=== PATIENT | female | born 1955 | race Caucasian/White ===

== ENCOUNTER 2016-07-08 13:51 | Emergency (ER) | payer MEDICARE, MEDICAID ==
[~2016-07-08] VITALS: Ht 157.5 cm; Wt 40.9 kg
[~2016-07-08 13:51] MED LIST: ABILIFY2 MG PO; ABILIFY5 MG PO; ANTIVERT 25MG25 MG PO; ARICEPT 5MG PO; ASPIRIN 81M81 MG/TA2 PO; ATARAX 25MG25 MG/TAB PO; ATARAX50 MG PO; ATIVAN 0.50.5 MG/TAB PO; AVELOX 400MG T400 MG PO; B-1100 MG PO; BONINE25 MG PO; BROVANA15 MCG/2 M IH; BROVANA15 MCG/2 M INH; CHANTIX 1MG1 MG PO; CHANTIX START M1 TAB PO; CHLORASEPTIC 1180 M3 TP; CLARITIN 1010 MG/TAB PO; CLEOCIN HCL300 MG PO; DESYREL 100MG100 MG PO; DESYREL 50MG50 MG PO; DIFLUCAN 100MG100 MG PO; DOXYCYCLINE 10100 MG PO; FERRO-TIME325 MG; FERROUS SULFATE65 MG PO; FERROUSAL325 MG PO; FLEXERIL 1010 MG/TAB PO; FLONASE NASAL S16 GM; FOLIC ACID 11 MG/TA1 PO; INCIVEK375 MG PO; IPRATROPIUM BROM3 M1 IH; LEVAQUIN 5500 MG/TA1 PO; LEVAQUIN 750MG750 M1 PO; LIPITOR20 MG PO; LORTAB 5/500 501 TAB PO; MEDROL 4MG DOSPA4 MG PO; MULTIVITAMIN SEN; NAPROSYN500 MG PO; NASONEX SPRAY17 GM NS; NEXIUM 40MG40 MG PO; NICODERM C21 MG/PATC TOP; PEGASYS180 MCG/0. SQ; PERFOROMIS20 MCG/2 M IH; PLAVIX 75MG TAB75 MG PO; PREDNISONE10 MG; PREDNISONE10 MG PO; PREDNISONE20 MG PO; PRIL40 PO; PRILOTC PO; PRISTIQ 50 MG T50 MG PO; PROTONIX 40MG T40 MG PO; PULMICORT R1 MG/2 ML IH; PULMICORT0.5 MG/2 M IH; PULMO-AIDE COMP1 DEV; QVAR0.04 MG/AC IH; REBETOL200 MG PO; REMERON 15M15 MG/TA1; REMERON30 MG PO; RIBAVIRIN200 M1 PO; RT ADVAIR 528 DISKUS IH; RT SPIRIVA18 MCG IH; THERAGRAN1 TA1 PO; TOPAMAX 25MG25 M1 PO; UNABLE; VESICARE 5MG5 MG PO; VESICARE10 MG PO; VITAMIN D 1001000 IU PO; VITAMIN D31000 IU PO; XANAX 0.5MG0.5 MG; XANAX 0.5MG0.5 MG PO; ZITHROMAX 250M250 MG PO; ZITHROMAX Z PA250 MG PO; ZOFRAN 4MG T4 MG/TAB PO; ZYRTEC10MGSGL
[2016-07-08 13:54] VITALS: TEMP 98.7
[2016-07-08 15:11] LABS: BASO % 0.4 % (0.0-2.0); EOS # 0.1 (0.0-0.7); EOS % 0.6 % (0-4.0); GRAN # 7.7 (1.4-6.5); GRAN % 76.2 % (42.2-75.2); HEMATOCRIT 40.7 % (37.0-47.0); HEMOGLOBIN 13.7 g/dl (12.5-16.0); LYMPH # 1.4 (1.2-3.4); LYMPH % 14.1 % (20.0-51.0); MEAN CELL VOLUME 95 fl (80.0-100.0); MEAN CORPUSCULAR HEMOGLOBIN 32 pg (27.0-31.0); MEAN CORPUSCULAR HGB CONC 34 g/dl (33.0-37.0); MEAN PLATELET VOLUME 10.6 fl (7.4-10.4); MONO # 0.8 (0.1-0.6); MONO % 8.2 % (1.7-9.3); PLATELET COUNT 142 K/mm3 (130-400); REDCELL DISTRIBUTION WIDTH-CV 13.7 % (11.5-14.5)
[2016-07-08 15:20] LABS: ADJUSTED CALCIUM 9.8 mg/dL (8.4-10.2); ALANINE AMINOTRANSFERASE 28 U/L (9-52); ALBUMIN 3.8 gm/dL (3.5-5.0); ALKALINE PHOSPHATASE 156 U/L (50-136); ANION GAP 9 mmol/L (7-16); BILIRUBIN,TOTAL 0.7 mg/dL (0.0-1.0); BLOOD UREA NITROGEN 13 mg/dL (7-17); CALCIUM 9.6 mg/dL (8.4-10.2); CARBON DIOXIDE 26 mmol/L (22-30); CHLORIDE 104 mmol/L (98-107); GLUCOSE 109 mg/dL (74-106); LIPASE 65 U/L (23-300); POTASSIUM 4.2 mmol/L (3.4-5.0); SODIUM 139 mmol/L (137-145); TOTAL PROTEIN 6.8 gm/dL (6.4-8.2)
[2016-07-08 15:31] LABS: B-TYPE NATRIURETIC PEPTIDE 90 pg/mL (0-125)
[2016-07-08 15:35] LABS: TROPONIN-I < 0.012 ng/mL (0.000-0.034)
[2016-07-08] MEDS ORDERED: CARAFATE 1GM1 G PO (16:11)
[2016-07-08] MEDS ORDERED: PREDNISONE20 MG PO (16:11)
[2016-07-08 16:33] VITALS: BP 129/81; PULSE 102
[2016-12-06] MEDS ORDERED: PROTONIX 40MG T40 MG PO (03:36)
[2016-12-28] MEDS ORDERED: ATARAX 25MG25 MG/TAB PO (12:06)
[2016-12-28] MEDS ORDERED: ALDACTONE 25MG25 M1 PO (12:06)
[2016-12-28] MEDS ORDERED: LASIX 20MG TABL20 MG PO (12:07)
[2016-12-28] MEDS ORDERED: COLACE 100100 MG/CAP PO (12:08)
[2016-12-28] MEDS ORDERED: K-DUR20 MEQ PO (12:08)
[2016-12-28] MEDS ORDERED: [UNRECOGNIZED DRUG - OTHER] PO (12:27)
== END 2016-07-08 16:33 | disposition home or self-care (01) ==
LOC: COL.ER 13:51
PROVIDERS: Emergency Medicine
DX: J44.9 Chronic obstructive pulmonary disease, unspecified (principal); F17.210 Nicotine dependence, cigarettes, uncomplicated; K21.9 Gastro-esophageal reflux disease without esophagitis
CPT/HCPCS: J2405; J2930; J7030

== ENCOUNTER 2016-07-28 11:53 | Inpatient (IN) | payer MEDICARE, MEDICAID ==
[~2016-07-28] VITALS: Ht 157.5 cm; Wt 40.0 kg
[~2016-07-28 11:53] MED LIST changes: +CARAFATE 1GM1 G PO
[2016-07-28 13:03] VITALS: BP 107/61; PULSE 75; TEMP 98
[2016-07-28 15:16] LABS: ADD PATHOLOGY DIFF REVIEW NO
[2016-07-28 15:21] LABS: ALLEN TEST YES; ALLENS TEST RESULT PASS; ARTERIAL BLD GAS O2 SATURATION 96.8 % (92-100); ARTERIAL BLD GAS TCO2 CT 29.3; ARTERIAL BLOOD GAS BASE EXCESS 3.8 (-2-2); ARTERIAL BLOOD GAS HCO3 28.1 meq/L (22-26); ARTERIAL BLOOD GAS PHT 7.45 C (7.35-7.45); ARTERIAL BLOOD GAS PO2 94.8 mmHg (80-100); ARTERIAL BLOOD GAS PO2T 94.8 (80-100); ARTERIAL BLOOD GAS pH 7.45 (7.35-7.45); ATS? YES; OXYHEMOGLOBIN 94.9 %
[2016-07-28 15:29] LABS: ADJUSTED CALCIUM 9.6 mg/dL (8.4-10.2); ALBUMIN 3.3 gm/dL (3.5-5.0); BILIRUBIN,TOTAL 0.8 mg/dL (0.0-1.0); CREATININE, serum 0.6 mg/dL (0.52-1.25); MAGNESIUM 2.2 mg/dL (1.6-2.3); PHOSPHOROUS 3.7 mg/dL (2.5-4.5); POTASSIUM 4.2 mmol/L (3.4-5.0); TOTAL PROTEIN 5.9 gm/dL (6.4-8.2)
[2016-07-28 15:36] VITALS: BP 101/53; PULSE 94; TEMP 98.6
[2016-07-28 15:36] LABS: HEMATOCRIT 37.7 % (37.0-47.0); HEMOGLOBIN 12.6 g/dl (12.5-16.0); MEAN CELL VOLUME 95 fl (80.0-100.0); MEAN CORPUSCULAR HEMOGLOBIN 32 pg (27.0-31.0); MEAN CORPUSCULAR HGB CONC 33 g/dl (33.0-37.0); MEAN PLATELET VOLUME 10.7 fl (7.4-10.4); PLATELET COUNT 113 K/mm3 (130-400); RED BLOOD COUNT 3.99 M/mm3 (4.10-5.30); REDCELL DISTRIBUTION WIDTH-CV 14.7 % (11.5-14.5)
[2016-07-28] MEDS ORDERED: RT SPIRIVA18 MCG IH (15:51)
[2016-07-28] MEDS ORDERED: ZOFRAN 4MG T4 MG/TAB PO (15:53)
[2016-07-28] MEDS ORDERED: LIPITOR20 MG PO (15:54)
[2016-07-28] MEDS ORDERED: ADVIL200 MG PO (15:57)
[2016-07-28 15:58] LABS: NEUTROPHILS 94 % (42.0-75.2); TOTAL CELLS COUNTED 100
[2016-07-28] MEDS ORDERED: VESICARE10 MG PO (15:58)
[2016-07-28 15:59] LABS: ANISOCYTOSIS 2+; HYPOCHROMIA 2+; MICROCYTOSIS 2+
[2016-07-28] MEDS ORDERED: PROTONIX 40MG T40 MG PO (15:59)
[2016-07-28] MEDS ORDERED: REMERON30 MG PO (16:00)
[2016-07-28] MEDS ORDERED: PREDNISONE10 MG PO (16:04)
[2016-07-28 20:07] VITALS: BP 107/67; PULSE 80; TEMP 97.9
[2016-07-28 22:54] VITALS: BP 110/50; PULSE 88; TEMP 98.2
[2016-07-29] VITALS (13 sets, daily range): BP systolic 91–131; BP diastolic 51–85; PULSE 66–97; TEMP 97.6–98.2
[2016-07-29 09:34] LABS: HEMOGLOBIN 12.2 g/dl (12.5-16.0); MEAN CELL VOLUME 93 fl (80.0-100.0); MEAN CORPUSCULAR HEMOGLOBIN 32 pg (27.0-31.0); MEAN CORPUSCULAR HGB CONC 35 g/dl (33.0-37.0); MEAN PLATELET VOLUME 10.2 fl (7.4-10.4); PLATELET COUNT 106 K/mm3 (130-400); RED BLOOD COUNT 3.79 M/mm3 (4.10-5.30); REDCELL DISTRIBUTION WIDTH-CV 14.6 % (11.5-14.5)
[2016-07-29 09:37] LABS: ADD PATHOLOGY DIFF REVIEW NO; HEMATOCRIT 35.3 % (37.0-47.0)
[2016-07-29 15:09] LABS: BAND 5 % (0-10); BASOPHIL 1 % (0-2); NEUTROPHILS 89 % (42.0-75.2); PLATELET ESTIMATE DECREASED (NORMAL); TOTAL CELLS COUNTED 100
[2016-07-30 03:24] VITALS: BP 95/60; PULSE 72; TEMP 98.3
[2016-07-30 08:16] VITALS: BP 109/57; PULSE 85; TEMP 97.4
[2016-07-30] MEDS ORDERED: LEVAQUIN 750MG750 M1 PO (12:41)
[2016-07-30] MEDS ORDERED: CEFTIN500 MG PO (12:42)
[2016-07-30] MEDS ORDERED: VENTOLIN0.09 MG IH (12:44)
[2016-07-30] MEDS ORDERED: PREDNISONE20 MG PO (12:45)
[2016-07-30 13:14] LABS: HEMATOCRIT 39.3 % (37.0-47.0); HEMOGLOBIN 13.3 g/dl (12.5-16.0); MEAN CELL VOLUME 94 fl (80.0-100.0); MEAN CORPUSCULAR HEMOGLOBIN 32 pg (27.0-31.0); MEAN CORPUSCULAR HGB CONC 34 g/dl (33.0-37.0); MEAN PLATELET VOLUME 10.5 fl (7.4-10.4); PLATELET COUNT 182 K/mm3 (130-400); RED BLOOD COUNT 4.17 M/mm3 (4.10-5.30)
[2016-07-30 13:17] LABS: ADD PATHOLOGY DIFF REVIEW NO
[2016-07-30 13:54] LABS: CALCIUM 9.4 mg/dL (8.4-10.2); CREATININE, serum 0.67 mg/dL (0.52-1.25); POTASSIUM 4.1 mmol/L (3.4-5.0)
[2016-07-30 14:52] LABS: BAND 1 % (0-10); EOSINOPHIL 1 % (0-4); NEUTROPHILS 94 % (42.0-75.2); TOTAL CELLS COUNTED 100
[2016-12-06] MEDS ORDERED: PROTONIX 40MG T40 MG PO (03:36)
[2016-12-28] MEDS ORDERED: ALDACTONE 25MG25 M1 PO (12:06)
[2016-12-28] MEDS ORDERED: ATARAX 25MG25 MG/TAB PO (12:06)
[2016-12-28] MEDS ORDERED: LASIX 20MG TABL20 MG PO (12:07)
[2016-12-28] MEDS ORDERED: COLACE 100100 MG/CAP PO (12:08)
[2016-12-28] MEDS ORDERED: K-DUR20 MEQ PO (12:08)
[2016-12-28] MEDS ORDERED: [UNRECOGNIZED DRUG - OTHER] PO (12:27)
== END 2016-07-30 13:52 | disposition home or self-care (01) | DRG 168 ==
LOC: MEDICAL 11:53
PROVIDERS: Internal Medicine Pulmonary Disease; Nurse Practitioner Family
PROC: 0B9H8ZZ Drainage of Lung Lingula, Via Natural or Artificial Opening Endoscopic (ICD-10-PCS; 2016-07-29)
PROC: 0BB88ZX Excision of Left Upper Lobe Bronchus, Via Natural or Artificial Opening Endoscopic, Diagnostic (ICD-10-PCS; 2016-07-29)
PROC: 0BB68ZX Excision of Right Lower Lobe Bronchus, Via Natural or Artificial Opening Endoscopic, Diagnostic (ICD-10-PCS; 2016-07-29)
PROC: 0BB58ZX Excision of Right Middle Lobe Bronchus, Via Natural or Artificial Opening Endoscopic, Diagnostic (ICD-10-PCS; principal; 2016-07-29 12:45)
DX: J44.1 Chronic obstructive pulmonary disease with (acute) exacerbation (principal); F17.210 Nicotine dependence, cigarettes, uncomplicated; Z86.73 Personal history of transient ischemic attack (TIA), and cerebral infarction without residual deficits
CPT/HCPCS: 99222-AI; 99232-AI; 99239; J0692; J1650; J2704; J2920

== ENCOUNTER 2016-08-17 16:24 | Emergency (ER) | payer MEDICARE, MEDICAID ==
[~2016-08-17] VITALS: Ht 157.5 cm; Wt 45.5 kg
[~2016-08-17 16:24] MED LIST changes: +ADVIL200 MG PO; +CEFTIN500 MG PO; +VENTOLIN0.09 MG IH
[2016-08-17 16:26] VITALS: TEMP 98
[2016-08-17 17:20] LABS: BASO % 0.1 % (0.0-2.0); EOS % 0.4 % (0-4.0); GRAN # 5.9 (1.4-6.5); GRAN % 84.9 % (42.2-75.2); HEMATOCRIT 42.6 % (37.0-47.0); HEMOGLOBIN 14.2 g/dl (12.5-16.0); LYMPH # 0.7 (1.2-3.4); LYMPH % 9.7 % (20.0-51.0); MEAN CELL VOLUME 94 fl (80.0-100.0); MEAN CORPUSCULAR HEMOGLOBIN 31 pg (27.0-31.0); MEAN CORPUSCULAR HGB CONC 33 g/dl (33.0-37.0); MONO # 0.3 (0.1-0.6); MONO % 3.9 % (1.7-9.3); PLATELET COUNT 120 K/mm3 (130-400); RED BLOOD COUNT 4.52 M/mm3 (4.10-5.30); REDCELL DISTRIBUTION WIDTH-CV 14.8 % (11.5-14.5)
[2016-08-17 17:49] LABS: B-TYPE NATRIURETIC PEPTIDE 50 pg/mL (0-125); C-REACTIVE PROTEIN < 0.5 mg/dL (0.0-0.9)
[2016-08-17 17:58] LABS: ADJUSTED CALCIUM 9.8 mg/dL (8.4-10.2); ALANINE AMINOTRANSFERASE 36 U/L (9-52); ALBUMIN 3.8 gm/dL (3.5-5.0); ALKALINE PHOSPHATASE 133 U/L (50-136); ANION GAP 10 mmol/L (7-16); BILIRUBIN,TOTAL 0.6 mg/dL (0.0-1.0); BLOOD UREA NITROGEN 19 mg/dL (7-17); CALCIUM 9.6 mg/dL (8.4-10.2); CARBON DIOXIDE 26 mmol/L (22-30); CHLORIDE 105 mmol/L (98-107); CREATININE, serum 0.64 mg/dL (0.52-1.25); GLUCOSE 129 mg/dL (74-106); LIPASE 72 U/L (23-300); POTASSIUM 4.3 mmol/L (3.4-5.0); SODIUM 142 mmol/L (137-145); TOTAL PROTEIN 6.9 gm/dL (6.4-8.2)
[2016-08-17 18:12] LABS: PH 7 (5-8); SQUAMOUS EPITHELIAL 0-2 /hpf; URINE APPEARANCE Cloudy; URINE BACTERIA None Seen /hpf; URINE BILIRUBIN Negative (NEGATIVE); URINE BLOOD Negative (NEGATIVE); URINE COLOR Yellow; URINE GLUCOSE Negative (NEGATIVE); URINE KETONE Negative (NEGATIVE); URINE RBC 0-2 /hpf; URINE WBC 0-2 /hpf
[2016-08-17] MEDS ORDERED: MEDROL 4MG DOSPA4 MG PO (18:50)
[2016-08-17 19:01] VITALS: BP 120/82; PULSE 88
[2016-12-06] MEDS ORDERED: PROTONIX 40MG T40 MG PO (03:36)
[2016-12-28] MEDS ORDERED: ALDACTONE 25MG25 M1 PO (12:06)
[2016-12-28] MEDS ORDERED: ATARAX 25MG25 MG/TAB PO (12:06)
[2016-12-28] MEDS ORDERED: LASIX 20MG TABL20 MG PO (12:07)
[2016-12-28] MEDS ORDERED: K-DUR20 MEQ PO (12:08)
[2016-12-28] MEDS ORDERED: COLACE 100100 MG/CAP PO (12:08)
[2016-12-28] MEDS ORDERED: [UNRECOGNIZED DRUG - OTHER] PO (12:27)
== END 2016-08-17 19:11 | disposition home or self-care (01) ==
LOC: COL.ER 16:24
PROVIDERS: Emergency Medicine
DX: J44.1 Chronic obstructive pulmonary disease with (acute) exacerbation (principal); J45.909 Unspecified asthma, uncomplicated; F17.210 Nicotine dependence, cigarettes, uncomplicated; Z99.81 Dependence on supplemental oxygen; R10.84 Generalized abdominal pain
CPT/HCPCS: J7040; J7512

== ENCOUNTER 2016-08-30 14:58 | Inpatient (IN) | payer MEDICARE, MEDICAID ==
[~2016-08-30] VITALS: Ht 157.5 cm; Wt 46.9 kg
[2016-08-30 15:52] LABS: HEMATOCRIT 41.2 % (37.0-47.0); HEMOGLOBIN 13.9 g/dl (12.5-16.0); MEAN CELL VOLUME 94 fl (80.0-100.0); MEAN CORPUSCULAR HEMOGLOBIN 32 pg (27.0-31.0); MEAN CORPUSCULAR HGB CONC 34 g/dl (33.0-37.0); MEAN PLATELET VOLUME 9.8 fl (7.4-10.4); PLATELET COUNT 95 K/mm3 (130-400); REDCELL DISTRIBUTION WIDTH-CV 13.9 % (11.5-14.5); WHITE BLOOD COUNT 10.8 K/mm3 (4.8-10.8)
[2016-08-30 15:59] LABS: ADD PATHOLOGY DIFF REVIEW NO
[2016-08-30 16:02] LABS: INR 1.1 (0.8-3.0); PROTHROMBIN TIME 11.7 SECONDS (9.7-12.8)
[2016-08-30 16:04] LABS: PARTIAL THROMBOPLASTIN TIME 30.2 SECONDS (26.0-37.0)
[2016-08-30 16:05] LABS: BAND 18 % (0-10); METAMYELOCYTE 1 % (0-0); NEUTROPHILS 76 % (42.0-75.2); PLATELET ESTIMATE NORMAL (NORMAL); TOTAL CELLS COUNTED 100
[2016-08-30 16:12] LABS: ADJUSTED CALCIUM 9.6 mg/dL (8.4-10.2); ALANINE AMINOTRANSFERASE 29 U/L (9-52); ALBUMIN 3.7 gm/dL (3.5-5.0); ALKALINE PHOSPHATASE 114 U/L (50-136); ANION GAP 8 mmol/L (7-16); BILIRUBIN,TOTAL 1.1 mg/dL (0.0-1.0); BLOOD UREA NITROGEN 9 mg/dL (7-17); CALCIUM 9.4 mg/dL (8.4-10.2); CARBON DIOXIDE 31 mmol/L (22-30); CHLORIDE 100 mmol/L (98-107); CREATININE, serum 0.57 mg/dL (0.52-1.25); GLUCOSE 114 mg/dL (74-106); LIPASE 41 U/L (23-300); POTASSIUM 4.1 mmol/L (3.4-5.0); SODIUM 138 mmol/L (137-145)
[2016-08-30 16:15] LABS: C-REACTIVE PROTEIN < 0.5 mg/dL (0.0-0.9)
[2016-08-30 16:20] LABS: B-TYPE NATRIURETIC PEPTIDE 105 pg/mL (0-125)
[2016-08-30 16:21] LABS: TROPONIN-I < 0.012 ng/mL (0.000-0.034)
[2016-08-30 18:27] LABS: PH 7 (5-8); URINE APPEARANCE Hazy; URINE BACTERIA None Seen /hpf; URINE BILIRUBIN Negative (NEGATIVE); URINE BLOOD Negative (NEGATIVE); URINE COLOR Yellow; URINE GLUCOSE Negative (NEGATIVE); URINE KETONE Negative (NEGATIVE); URINE RBC 0-2 /hpf; URINE UROBILINOGEN Negative (NEGATIVE)
[2016-08-30] MEDS ORDERED: PREDNISONE10 MG PO (18:32)
[2016-08-30] MEDS ORDERED: PRISTIQ 50 MG T50 MG PO (18:37)
[2016-08-30] MEDS ORDERED: ATARAX50 MG PO (18:38)
[2016-08-30 19:07] LABS: ARTERIAL BLD GAS O2 SATURATION 96.2 % (92-100); ARTERIAL BLD GAS TCO2 CT 27.5; ARTERIAL BLOOD GAS HCO3 26.2 meq/L (22-26); ARTERIAL BLOOD GAS PO2 89.8 mmHg (80-100); ARTERIAL BLOOD GAS PO2T 89.8 (80-100)
[2016-08-30 19:09] LABS: ALLEN TEST NO; ATS? YES
[2016-08-30 21:05] VITALS: BP 100/62; PULSE 88; TEMP 98.5
[2016-08-31] VITALS (8 sets, daily range): BP systolic 100–134; BP diastolic 50–69; PULSE 64–118; TEMP 97.7–98.7
[2016-08-31 12:56] LABS: HEMATOCRIT 38.6 % (37.0-47.0); MEAN CELL VOLUME 94 fl (80.0-100.0); MEAN CORPUSCULAR HEMOGLOBIN 32 pg (27.0-31.0); MEAN CORPUSCULAR HGB CONC 34 g/dl (33.0-37.0); MEAN PLATELET VOLUME 10.9 fl (7.4-10.4); PLATELET COUNT 81 K/mm3 (130-400); RED BLOOD COUNT 4.09 M/mm3 (4.10-5.30); REDCELL DISTRIBUTION WIDTH-CV 13.8 % (11.5-14.5); WHITE BLOOD COUNT 15.7 K/mm3 (4.8-10.8)
[2016-08-31 12:57] LABS: ADD PATHOLOGY DIFF REVIEW NO
[2016-08-31 13:26] LABS: BAND 19 % (0-10); NEUTROPHILS 76 % (42.0-75.2); PLATELET ESTIMATE NORMAL (NORMAL); TOTAL CELLS COUNTED 100
[2016-08-31 16:07] LABS: INFLUENZA B NEGATIVE
[2016-09-01] VITALS (7 sets, daily range): BP systolic 116–136; BP diastolic 58–96; PULSE 84–112; TEMP 97.5–98.6
[2016-09-01 09:01] LABS: MEAN CELL VOLUME 95 fl (80.0-100.0); MEAN CORPUSCULAR HGB CONC 34 g/dl (33.0-37.0); PLATELET COUNT 92 K/mm3 (130-400); RED BLOOD COUNT 3.64 M/mm3 (4.10-5.30); REDCELL DISTRIBUTION WIDTH-CV 14.5 % (11.5-14.5)
[2016-09-01 09:23] LABS: ADD PATHOLOGY DIFF REVIEW NO; HEMATOCRIT 34.4 % (37.0-47.0); HEMOGLOBIN 11.6 g/dl (12.5-16.0); MEAN CORPUSCULAR HEMOGLOBIN 32 pg (27.0-31.0); WHITE BLOOD COUNT 21.2 K/mm3 (4.8-10.8)
[2016-09-01 10:24] LABS: BAND 12 % (0-10); NEUTROPHILS 85 % (42.0-75.2); PLATELET ESTIMATE DECREASED (NORMAL); TOTAL CELLS COUNTED 100
[2016-09-01] MEDS ORDERED: LEVAQUIN 5500 MG/TA1 PO (14:29)
[2016-09-01] MEDS ORDERED: MUCINEX1200 MG PO (14:30)
[2016-09-01] MEDS ORDERED: FLONASEALLERGY NS (14:31)
[2016-09-01] MEDS ORDERED: PREDNISONE20 MG PO (14:33)
[2016-12-06] MEDS ORDERED: PROTONIX 40MG T40 MG PO (03:36)
[2016-12-28] MEDS ORDERED: ATARAX 25MG25 MG/TAB PO (12:06)
[2016-12-28] MEDS ORDERED: ALDACTONE 25MG25 M1 PO (12:06)
[2016-12-28] MEDS ORDERED: LASIX 20MG TABL20 MG PO (12:07)
[2016-12-28] MEDS ORDERED: COLACE 100100 MG/CAP PO (12:08)
[2016-12-28] MEDS ORDERED: K-DUR20 MEQ PO (12:08)
[2016-12-28] MEDS ORDERED: [UNRECOGNIZED DRUG - OTHER] PO (12:27)
== END 2016-09-01 18:00 | disposition home or self-care (01) | DRG 191 ==
LOC: COL.ER 14:58 → MEDICAL 19:06
PROVIDERS: Emergency Medicine; Internal Medicine Gastroenterology; Physician Assistant
PROC: 0DJ08ZZ Inspection of Upper Intestinal Tract, Via Natural or Artificial Opening Endoscopic (ICD-10-PCS; principal; 2016-09-01 14:15)
PROC: 0DJD8ZZ Inspection of Lower Intestinal Tract, Via Natural or Artificial Opening Endoscopic (ICD-10-PCS; 2016-09-01 14:15)
DX: J44.1 Chronic obstructive pulmonary disease with (acute) exacerbation (principal); K76.6 Portal hypertension; I10 Essential (primary) hypertension; B19.20 Unspecified viral hepatitis C without hepatic coma; D69.6 Thrombocytopenia, unspecified; K57.30 Diverticulosis of large intestine without perforation or abscess without bleeding; F03.90 Unspecified dementia, unspecified severity, without behavioral disturbance, psychotic disturbance, mood disturbance, and anxiety; E78.5 Hyperlipidemia, unspecified; R11.2 Nausea with vomiting, unspecified; R55 Syncope and collapse; F41.9 Anxiety disorder, unspecified; R10.13 Epigastric pain; F17.210 Nicotine dependence, cigarettes, uncomplicated; Z99.81 Dependence on supplemental oxygen; Z86.73 Personal history of transient ischemic attack (TIA), and cerebral infarction without residual deficits
CPT/HCPCS: 99223-AI; 99233-AI; 99239; C9113; J0696; J1170; J1650; J1956; J2405; J2704; J2930; J7030; Q9967

== ENCOUNTER 2016-09-29 12:52 | Emergency (ER) | payer MEDICARE, MEDICAID ==
[~2016-09-29] VITALS: Ht 157.5 cm; Wt 45.5 kg
[~2016-09-29 12:52] MED LIST changes: +FLONASEALLERGY NS; +MUCINEX1200 MG PO
[2016-09-29 12:56] VITALS: TEMP 98.5
[2016-09-29 13:51] LABS: ADJUSTED CALCIUM 9.8 mg/dL (8.4-10.2); ALBUMIN 3.2 gm/dL (3.5-5.0); BILIRUBIN,TOTAL 0.8 mg/dL (0.0-1.0); CALCIUM 9.2 mg/dL (8.4-10.2); CREATININE, serum 0.6 mg/dL (0.52-1.25); POTASSIUM 3.5 mmol/L (3.4-5.0); TOTAL PROTEIN 5.4 gm/dL (6.4-8.2)
[2016-09-29 13:59] LABS: BASO % 0.2 % (0.0-2.0); EOS % 0.1 % (0-4.0); GRAN # 13.5 (1.4-6.5); GRAN % 81.4 % (42.2-75.2); HEMOGLOBIN 12.7 g/dl (12.5-16.0); LYMPH # 1.5 (1.2-3.4); LYMPH % 8.9 % (20.0-51.0); MEAN CELL VOLUME 91 fl (80.0-100.0); MEAN CORPUSCULAR HEMOGLOBIN 31 pg (27.0-31.0); MEAN CORPUSCULAR HGB CONC 33 g/dl (33.0-37.0); MEAN PLATELET VOLUME 10.1 fl (7.4-10.4); MONO # 1.4 (0.1-0.6); MONO % 8.2 % (1.7-9.3); PLATELET COUNT 110 K/mm3 (130-400); RED BLOOD COUNT 4.16 M/mm3 (4.10-5.30); REDCELL DISTRIBUTION WIDTH-CV 14.1 % (11.5-14.5); WHITE BLOOD COUNT 16.6 K/mm3 (4.8-10.8)
[2016-09-29 15:15] VITALS: BP 119/75; PULSE 113
[2016-12-06] MEDS ORDERED: PROTONIX 40MG T40 MG PO (03:36)
[2016-12-28] MEDS ORDERED: ALDACTONE 25MG25 M1 PO (12:06)
[2016-12-28] MEDS ORDERED: ATARAX 25MG25 MG/TAB PO (12:06)
[2016-12-28] MEDS ORDERED: LASIX 20MG TABL20 MG PO (12:07)
[2016-12-28] MEDS ORDERED: K-DUR20 MEQ PO (12:08)
[2016-12-28] MEDS ORDERED: COLACE 100100 MG/CAP PO (12:08)
[2016-12-28] MEDS ORDERED: [UNRECOGNIZED DRUG - OTHER] PO (12:27)
== END 2016-09-29 15:16 | disposition home or self-care (01) ==
LOC: COL.ER 12:52
PROVIDERS: Emergency Medicine
DX: J44.1 Chronic obstructive pulmonary disease with (acute) exacerbation (principal); F17.210 Nicotine dependence, cigarettes, uncomplicated; R00.0 Tachycardia, unspecified; B19.20 Unspecified viral hepatitis C without hepatic coma; Z99.81 Dependence on supplemental oxygen
CPT/HCPCS: J2930; J7030

== ENCOUNTER 2016-10-12 15:18 | Inpatient (IN) | payer MEDICARE, MEDICAID ==
[~2016-10-12] VITALS: Ht 157.5 cm; Wt 47.5 kg
[2016-10-12 15:37] VITALS: BP 146/88; PULSE 89; TEMP 98.3
[2016-10-12] MEDS ORDERED: INCRUSE EL62.5 MCG/A IH (15:38)
[2016-10-12 16:17] LABS: ARTERIAL BLD GAS O2 SATURATION 97.1 % (92-100); ARTERIAL BLD GAS TCO2 CT 32.4; ARTERIAL BLOOD GAS PO2 100.3 mmHg (80-100); ARTERIAL BLOOD GAS pH 7.45 (7.35-7.45)
[2016-10-12 16:18] LABS: ALLEN TEST YES; ALLENS TEST RESULT PASS; ATS? YES
[2016-10-12 18:38] LABS: BASO % 0.1 % (0.0-2.0); EOS % 0.3 % (0-4.0); GRAN # 11.2 (1.4-6.5); GRAN % 82.1 % (42.2-75.2); HEMATOCRIT 41.2 % (37.0-47.0); HEMOGLOBIN 13.7 g/dl (12.5-16.0); LYMPH # 1.3 (1.2-3.4); LYMPH % 9.7 % (20.0-51.0); MEAN CELL VOLUME 93 fl (80.0-100.0); MEAN CORPUSCULAR HEMOGLOBIN 31 pg (27.0-31.0); MEAN CORPUSCULAR HGB CONC 33 g/dl (33.0-37.0); MEAN PLATELET VOLUME 9.6 fl (7.4-10.4); MONO # 0.9 (0.1-0.6); MONO % 6.7 % (1.7-9.3); PLATELET COUNT 107 K/mm3 (130-400); RED BLOOD COUNT 4.45 M/mm3 (4.10-5.30); REDCELL DISTRIBUTION WIDTH-CV 14.7 % (11.5-14.5); WHITE BLOOD COUNT 13.7 K/mm3 (4.8-10.8)
[2016-10-12 18:49] LABS: ADJUSTED CALCIUM 9.8 mg/dL (8.4-10.2); ALBUMIN 3.5 gm/dL (3.5-5.0); BILIRUBIN,TOTAL 1.1 mg/dL (0.0-1.0); CALCIUM 9.4 mg/dL (8.4-10.2); CREATININE, serum 0.52 mg/dL (0.52-1.25); POTASSIUM 3.5 mmol/L (3.4-5.0); TOTAL PROTEIN 5.9 gm/dL (6.4-8.2)
[2016-10-12 19:28] LABS: PH 8 (5-8); SQUAMOUS EPITHELIAL None Seen /hpf; URINE APPEARANCE Cloudy; URINE BACTERIA Rare /hpf; URINE BILIRUBIN Negative (NEGATIVE); URINE BLOOD Negative (NEGATIVE); URINE COLOR Yellow; URINE GLUCOSE Negative (NEGATIVE); URINE KETONE Negative (NEGATIVE); URINE RBC None Seen /hpf; URINE UROBILINOGEN Negative (NEGATIVE); URINE WBC None Seen /hpf
[2016-10-12 19:28] LABS: INFLUENZA B NEGATIVE
[2016-10-12 20:44] VITALS: BP 108/57; PULSE 100; TEMP 98.4
[2016-10-12 23:54] VITALS: BP 95/55; PULSE 95; TEMP 98.8
[2016-10-13 03:13] VITALS: BP 104/58; PULSE 78; TEMP 98
[2016-10-13 08:20] VITALS: BP 120/70; PULSE 119; TEMP 98.1
[2016-10-13 11:27] VITALS: BP 106/80; PULSE 115; TEMP 98.8
[2016-10-13 15:13] VITALS: BP 117/74; PULSE 120; TEMP 97.9
[2016-10-13 20:11] VITALS: BP 100/64; PULSE 100; TEMP 98.5
[2016-10-14 00:32] VITALS: BP 116/66; BP 93/48; PULSE 107; TEMP 98.5
[2016-10-14 04:52] VITALS: BP 124/76; PULSE 110; TEMP 98.2
[2016-10-14 08:01] VITALS: BP 120/84; PULSE 98; TEMP 98.2
[2016-10-14] MEDS ORDERED: PREDNISONE20 MG PO (11:04)
[2016-10-14] MEDS ORDERED: OMNICEF 300MG300 MG PO (11:04)
[2016-10-14] MEDS ORDERED: MUCINEX DM 30 M1 TE1 PO (11:04)
[2016-12-06] MEDS ORDERED: PROTONIX 40MG T40 MG PO (03:36)
[2016-12-28] MEDS ORDERED: ATARAX 25MG25 MG/TAB PO (12:06)
[2016-12-28] MEDS ORDERED: ALDACTONE 25MG25 M1 PO (12:06)
[2016-12-28] MEDS ORDERED: LASIX 20MG TABL20 MG PO (12:07)
[2016-12-28] MEDS ORDERED: K-DUR20 MEQ PO (12:08)
[2016-12-28] MEDS ORDERED: COLACE 100100 MG/CAP PO (12:08)
[2016-12-28] MEDS ORDERED: [UNRECOGNIZED DRUG - OTHER] PO (12:27)
== END 2016-10-14 12:28 | disposition left against medical advice (07) | DRG 191 ==
LOC: MEDICAL 15:18
PROVIDERS: Family Medicine; Physician Assistant
DX: J44.1 Chronic obstructive pulmonary disease with (acute) exacerbation (principal); K76.6 Portal hypertension; E44.0 Moderate protein-calorie malnutrition; Z68.1 Body mass index [BMI] 19.9 or less, adult; F17.210 Nicotine dependence, cigarettes, uncomplicated; F03.90 Unspecified dementia, unspecified severity, without behavioral disturbance, psychotic disturbance, mood disturbance, and anxiety; E78.5 Hyperlipidemia, unspecified; F41.9 Anxiety disorder, unspecified; K74.60 Unspecified cirrhosis of liver; B19.20 Unspecified viral hepatitis C without hepatic coma; D69.6 Thrombocytopenia, unspecified; Z99.81 Dependence on supplemental oxygen; Z79.52 Long term (current) use of systemic steroids; Z86.73 Personal history of transient ischemic attack (TIA), and cerebral infarction without residual deficits
CPT/HCPCS: 99222-AI; 99239; J0696; J1650; J2405; J2930; J7030

== ENCOUNTER 2016-10-27 11:54 | Emergency (ER) | payer MEDICARE, MEDICAID ==
[~2016-10-27] VITALS: Ht 157.5 cm; Wt 45.5 kg
[~2016-10-27 11:54] MED LIST changes: +INCRUSE EL62.5 MCG/A IH; +MUCINEX DM 30 M1 TE1 PO; +OMNICEF 300MG300 MG PO
[2016-10-27 12:39] LABS: BASO % 0.3 % (0.0-2.0); EOS # 0.1 (0.0-0.7); EOS % 0.8 % (0-4.0); GRAN % 62.3 % (42.2-75.2); LYMPH # 1.7 (1.2-3.4); LYMPH % 26.3 % (20.0-51.0); MEAN CELL VOLUME 94 fl (80.0-100.0); MEAN CORPUSCULAR HGB CONC 33 g/dl (33.0-37.0); MEAN PLATELET VOLUME 10.4 fl (7.4-10.4); MONO # 0.6 (0.1-0.6); MONO % 9.8 % (1.7-9.3); PLATELET COUNT 97 K/mm3 (130-400); RED BLOOD COUNT 3.67 M/mm3 (4.10-5.30); REDCELL DISTRIBUTION WIDTH-CV 14.6 % (11.5-14.5); WHITE BLOOD COUNT 6.4 K/mm3 (4.8-10.8)
[2016-10-27 12:40] LABS: HEMATOCRIT 34.3 % (37.0-47.0); HEMOGLOBIN 11.3 g/dl (12.5-16.0); MEAN CORPUSCULAR HEMOGLOBIN 31 pg (27.0-31.0)
[2016-10-27 12:49] LABS: ALANINE AMINOTRANSFERASE 30 U/L (9-52); ALKALINE PHOSPHATASE 106 U/L (50-136); ANION GAP 5 mmol/L (7-16); BILIRUBIN,TOTAL 0.7 mg/dL (0.0-1.0); BLOOD UREA NITROGEN 7 mg/dL (7-17); CALCIUM 8.4 mg/dL (8.4-10.2); CARBON DIOXIDE 27 mmol/L (22-30); CHLORIDE 108 mmol/L (98-107); CREATININE, serum 0.52 mg/dL (0.52-1.25); GLUCOSE 94 mg/dL (74-106); POTASSIUM 3.5 mmol/L (3.4-5.0); SODIUM 140 mmol/L (137-145); TOTAL PROTEIN 5.8 gm/dL (6.4-8.2)
[2016-10-27 13:44] LABS: ADJUSTED CALCIUM 8.9 mg/dL (8.4-10.2); ALBUMIN 3.4 gm/dL (3.5-5.0)
[2016-10-27 14:13] LABS: TROPONIN-I < 0.012 ng/mL (0.000-0.034)
[2016-10-27] MEDS ORDERED: PREDNISONE20 MG PO (15:13)
[2016-10-27 16:20] VITALS: BP 129/79; PULSE 90
[2016-10-28] MEDS ORDERED: ALBUTEROL0.83 MG/ML IH (16:44)
[2016-10-28] MEDS ORDERED: ZITHROMAX 250M250 MG PO (16:47)
[2016-12-06] MEDS ORDERED: PROTONIX 40MG T40 MG PO (03:36)
[2016-12-28] MEDS ORDERED: ALDACTONE 25MG25 M1 PO (12:06)
[2016-12-28] MEDS ORDERED: ATARAX 25MG25 MG/TAB PO (12:06)
[2016-12-28] MEDS ORDERED: LASIX 20MG TABL20 MG PO (12:07)
[2016-12-28] MEDS ORDERED: K-DUR20 MEQ PO (12:08)
[2016-12-28] MEDS ORDERED: COLACE 100100 MG/CAP PO (12:08)
[2016-12-28] MEDS ORDERED: [UNRECOGNIZED DRUG - OTHER] PO (12:27)
== END 2016-10-27 16:20 | disposition home or self-care (01) ==
LOC: COL.ER 11:54
PROVIDERS: Emergency Medicine
DX: J44.1 Chronic obstructive pulmonary disease with (acute) exacerbation (principal); Z99.81 Dependence on supplemental oxygen; R07.9 Chest pain, unspecified; F17.210 Nicotine dependence, cigarettes, uncomplicated
CPT/HCPCS: J7512

== ENCOUNTER 2016-10-28 14:06 | Emergency (ER) | payer MEDICARE, MEDICAID ==
[~2016-10-28] VITALS: Ht 157.5 cm; Wt 45.5 kg
[2016-10-28 14:14] VITALS: TEMP 96.7
[2016-10-28 15:27] LABS: MEAN CELL VOLUME 92 fl (80.0-100.0); MEAN CORPUSCULAR HGB CONC 33 g/dl (33.0-37.0); MEAN PLATELET VOLUME 10.3 fl (7.4-10.4); PLATELET COUNT 118 K/mm3 (130-400); RED BLOOD COUNT 3.88 M/mm3 (4.10-5.30); REDCELL DISTRIBUTION WIDTH-CV 14.6 % (11.5-14.5)
[2016-10-28 15:28] LABS: ADD PATHOLOGY DIFF REVIEW NO; HEMATOCRIT 35.8 % (37.0-47.0); HEMOGLOBIN 11.9 g/dl (12.5-16.0); MEAN CORPUSCULAR HEMOGLOBIN 31 pg (27.0-31.0)
[2016-10-28 15:47] LABS: ADJUSTED CALCIUM 9.7 mg/dL (8.4-10.2); ALBUMIN 4.1 gm/dL (3.5-5.0); BILIRUBIN,TOTAL 0.5 mg/dL (0.0-1.0); CALCIUM 9.8 mg/dL (8.4-10.2); CREATININE, serum 0.5 mg/dL (0.52-1.25); POTASSIUM 3.4 mmol/L (3.4-5.0); TOTAL PROTEIN 6.6 gm/dL (6.4-8.2)
[2016-10-28 15:52] LABS: BAND 3 % (0-10); NEUTROPHILS 91 % (42.0-75.2); PLATELET ESTIMATE NORMAL (NORMAL); TOTAL CELLS COUNTED 100
[2016-10-28] MEDS ORDERED: ALBUTEROL0.83 MG/ML IH (16:44)
[2016-10-28] MEDS ORDERED: ZITHROMAX 250M250 MG PO (16:47)
[2016-10-28 17:02] VITALS: BP 129/68; PULSE 112
[2016-12-06] MEDS ORDERED: PROTONIX 40MG T40 MG PO (03:36)
[2016-12-28] MEDS ORDERED: ATARAX 25MG25 MG/TAB PO (12:06)
[2016-12-28] MEDS ORDERED: ALDACTONE 25MG25 M1 PO (12:06)
[2016-12-28] MEDS ORDERED: LASIX 20MG TABL20 MG PO (12:07)
[2016-12-28] MEDS ORDERED: K-DUR20 MEQ PO (12:08)
[2016-12-28] MEDS ORDERED: COLACE 100100 MG/CAP PO (12:08)
[2016-12-28] MEDS ORDERED: [UNRECOGNIZED DRUG - OTHER] PO (12:27)
== END 2016-10-28 17:30 | disposition home or self-care (01) ==
LOC: COL.ER 14:06 → MEDICAL 15:26 → COL.ER 15:26
PROVIDERS: Emergency Medicine
DX: J44.1 Chronic obstructive pulmonary disease with (acute) exacerbation (principal); I10 Essential (primary) hypertension; Z99.81 Dependence on supplemental oxygen
CPT/HCPCS: J2920

== ENCOUNTER 2016-11-02 15:12 | Emergency (ER) | payer MEDICARE, MEDICAID ==
[~2016-11-02] VITALS: Ht 157.5 cm; Wt 45.5 kg
[~2016-11-02 15:12] MED LIST changes: +ALBUTEROL0.83 MG/ML IH
[2016-11-02 15:19] VITALS: TEMP 98.5
[2016-11-02 16:12] LABS: MEAN CELL VOLUME 91 fl (80.0-100.0); MEAN CORPUSCULAR HGB CONC 34 g/dl (33.0-37.0); MEAN PLATELET VOLUME 9.8 fl (7.4-10.4); PLATELET COUNT 126 K/mm3 (130-400); RED BLOOD COUNT 3.79 M/mm3 (4.10-5.30); REDCELL DISTRIBUTION WIDTH-CV 14.8 % (11.5-14.5); WHITE BLOOD COUNT 7.4 K/mm3 (4.8-10.8)
[2016-11-02 16:15] LABS: HEMATOCRIT 34.5 % (37.0-47.0); HEMOGLOBIN 11.6 g/dl (12.5-16.0); MEAN CORPUSCULAR HEMOGLOBIN 31 pg (27.0-31.0)
[2016-11-02 16:16] LABS: ADD PATHOLOGY DIFF REVIEW NO
[2016-11-02 16:21] LABS: ADJUSTED CALCIUM 9.1 mg/dL (8.4-10.2); ALBUMIN 3.2 gm/dL (3.5-5.0); BILIRUBIN,TOTAL 0.5 mg/dL (0.0-1.0); CALCIUM 8.5 mg/dL (8.4-10.2); CREATININE, serum 0.53 mg/dL (0.52-1.25); POTASSIUM 3.5 mmol/L (3.4-5.0); TOTAL PROTEIN 5.4 gm/dL (6.4-8.2)
[2016-11-02 16:23] LABS: ARTERIAL BLD GAS O2 SATURATION 93.4 % (92-100); ARTERIAL BLD GAS TCO2 CT 29.4; ARTERIAL BLOOD GAS BASE EXCESS 7.5 (-2-2); ARTERIAL BLOOD GAS HCO3 28.5 meq/L (22-26); ARTERIAL BLOOD GAS PHT 7.61 C (7.35-7.45); ARTERIAL BLOOD GAS PO2 62.8 mmHg (80-100); ARTERIAL BLOOD GAS PO2T 62.8 (80-100); OXYHEMOGLOBIN 92.1 %
[2016-11-02 16:27] LABS: ARTERIAL BLOOD GAS pH 7.61 (7.35-7.45); ATS? YES
[2016-11-02 16:28] LABS: ALLEN TEST YES; ALLENS TEST RESULT PASS
[2016-11-02 17:00] LABS: BAND 1 % (0-10); BASOPHIL 1 % (0-2); EOSINOPHIL 1 % (0-4); NEUTROPHILS 59 % (42.0-75.2); PLATELET ESTIMATE NORMAL (NORMAL); TOTAL CELLS COUNTED 100
[2016-11-02] MEDS ORDERED: PREDNISONE20 MG PO (17:27)
[2016-11-02 17:42] VITALS: BP 110/62; PULSE 108
[2016-12-06] MEDS ORDERED: PROTONIX 40MG T40 MG PO (03:36)
[2016-12-28] MEDS ORDERED: ALDACTONE 25MG25 M1 PO (12:06)
[2016-12-28] MEDS ORDERED: ATARAX 25MG25 MG/TAB PO (12:06)
[2016-12-28] MEDS ORDERED: LASIX 20MG TABL20 MG PO (12:07)
[2016-12-28] MEDS ORDERED: COLACE 100100 MG/CAP PO (12:08)
[2016-12-28] MEDS ORDERED: K-DUR20 MEQ PO (12:08)
[2016-12-28] MEDS ORDERED: [UNRECOGNIZED DRUG - OTHER] PO (12:27)
== END 2016-11-02 18:08 | disposition other institution (70) ==
LOC: COL.ER 15:12
PROVIDERS: Emergency Medicine
DX: J44.1 Chronic obstructive pulmonary disease with (acute) exacerbation (principal); Z99.81 Dependence on supplemental oxygen; F17.210 Nicotine dependence, cigarettes, uncomplicated; Z86.73 Personal history of transient ischemic attack (TIA), and cerebral infarction without residual deficits; D69.6 Thrombocytopenia, unspecified
CPT/HCPCS: J0696; J2405; J2930

== ENCOUNTER 2016-11-07 13:05 | Emergency (ER) | payer MEDICARE, MEDICAID ==
[~2016-11-07] VITALS: Ht 157.5 cm; Wt 44.5 kg
[2016-11-07 13:11] VITALS: TEMP 98.5
[2016-11-07 13:32] LABS: VENOUS BLOOD GAS BE 3.5 (-4-4); VENOUS BLOOD GAS SAO2 90.5 % (60-80)
[2016-11-07 13:33] LABS: VENOUS BLOOD GAS SITE VENIPUNCTURE
[2016-11-07 13:45] LABS: MEAN CELL VOLUME 90 fl (80.0-100.0); MEAN CORPUSCULAR HGB CONC 33 g/dl (33.0-37.0); MEAN PLATELET VOLUME 9.6 fl (7.4-10.4); PLATELET COUNT 150 K/mm3 (130-400); RED BLOOD COUNT 3.76 M/mm3 (4.10-5.30); REDCELL DISTRIBUTION WIDTH-CV 15.1 % (11.5-14.5); WHITE BLOOD COUNT 14.7 K/mm3 (4.8-10.8)
[2016-11-07 13:47] LABS: ADD PATHOLOGY DIFF REVIEW NO; HEMOGLOBIN 11.3 g/dl (12.5-16.0); MEAN CORPUSCULAR HEMOGLOBIN 30 pg (27.0-31.0)
[2016-11-07 13:53] LABS: ADJUSTED CALCIUM 9.6 mg/dL (8.4-10.2); ALANINE AMINOTRANSFERASE 44 U/L (9-52); ALBUMIN 3.5 gm/dL (3.5-5.0); ALKALINE PHOSPHATASE 109 U/L (50-136); ANION GAP 7 mmol/L (7-16); BILIRUBIN,TOTAL 0.7 mg/dL (0.0-1.0); BLOOD UREA NITROGEN 13 mg/dL (7-17); CALCIUM 9.2 mg/dL (8.4-10.2); CARBON DIOXIDE 28 mmol/L (22-30); CHLORIDE 102 mmol/L (98-107); CREATININE, serum 0.55 mg/dL (0.52-1.25); GLUCOSE 119 mg/dL (74-106); POTASSIUM 3.6 mmol/L (3.4-5.0); SODIUM 137 mmol/L (137-145); TOTAL PROTEIN 5.8 gm/dL (6.4-8.2)
[2016-11-07 14:01] LABS: B-TYPE NATRIURETIC PEPTIDE 143 pg/mL (0-125)
[2016-11-07 14:05] LABS: BAND 2 % (0-10); NEUTROPHILS 97 % (42.0-75.2); TOTAL CELLS COUNTED 100; TOXIC GRANULATION PRESENT
[2016-11-07 14:06] LABS: ANISOCYTOSIS 1+; HYPOCHROMIA 1+; POLYCHROMASIA 1+; TROPONIN-I < 0.012 ng/mL (0.000-0.034)
[2016-11-07] MEDS ORDERED: MUCINEX DM 30 M1 TE1 (14:13)
[2016-11-07] MEDS ORDERED: MULTIPLE VITAMI1 CAP PO (14:13)
[2016-11-07] MEDS ORDERED: VITAMIN D 400400 IU PO (14:14)
[2016-11-07] MEDS ORDERED: ZOFRAN 4MG T4 MG/TAB PO (14:15)
[2016-11-07] MEDS ORDERED: CARAFATE 1GM1 G PO (14:16)
[2016-11-07] MEDS ORDERED: LEVAQUIN 750MG750 M1 PO (14:38)
[2016-11-07] MEDS ORDERED: PREDNISONE20 MG PO (14:40)
[2016-11-07] MEDS ORDERED: ULTRAM 50MG TAB50 MG PO (14:40)
[2016-11-07 16:05] VITALS: BP 131/84; PULSE 111
[2016-12-06] MEDS ORDERED: PROTONIX 40MG T40 MG PO (03:36)
[2016-12-28] MEDS ORDERED: ALDACTONE 25MG25 M1 PO (12:06)
[2016-12-28] MEDS ORDERED: ATARAX 25MG25 MG/TAB PO (12:06)
[2016-12-28] MEDS ORDERED: LASIX 20MG TABL20 MG PO (12:07)
[2016-12-28] MEDS ORDERED: COLACE 100100 MG/CAP PO (12:08)
[2016-12-28] MEDS ORDERED: K-DUR20 MEQ PO (12:08)
[2016-12-28] MEDS ORDERED: [UNRECOGNIZED DRUG - OTHER] PO (12:27)
== END 2016-11-07 16:05 | disposition home or self-care (01) ==
LOC: COL.ER 13:05
PROVIDERS: Emergency Medicine
DX: Z02.89 Encounter for other administrative examinations (principal)
CPT/HCPCS: J1170; J1885; J7512

== ENCOUNTER 2016-11-07 17:14 | Emergency (ER) | payer MEDICARE, MEDICAID ==
[~2016-11-07] VITALS: Ht 157.5 cm; Wt 44.5 kg
[~2016-11-07 17:14] MED LIST changes: +MUCINEX DM 30 M1 TE1; +MULTIPLE VITAMI1 CAP PO; +ULTRAM 50MG TAB50 MG PO; +VITAMIN D 400400 IU PO
[2016-11-07 17:43] VITALS: BP 131/91; PULSE 117; TEMP 98.8
[2016-12-06] MEDS ORDERED: PROTONIX 40MG T40 MG PO (03:36)
[2016-12-28] MEDS ORDERED: ATARAX 25MG25 MG/TAB PO (12:06)
[2016-12-28] MEDS ORDERED: ALDACTONE 25MG25 M1 PO (12:06)
[2016-12-28] MEDS ORDERED: LASIX 20MG TABL20 MG PO (12:07)
[2016-12-28] MEDS ORDERED: COLACE 100100 MG/CAP PO (12:08)
[2016-12-28] MEDS ORDERED: K-DUR20 MEQ PO (12:08)
[2016-12-28] MEDS ORDERED: [UNRECOGNIZED DRUG - OTHER] PO (12:27)
== END 2016-11-07 17:44 | disposition left against medical advice (07) ==
LOC: COL.ER 17:14
DX: R10.84 Generalized abdominal pain (principal); R11.10 Vomiting, unspecified; J44.9 Chronic obstructive pulmonary disease, unspecified; F17.210 Nicotine dependence, cigarettes, uncomplicated

== ENCOUNTER 2016-11-08 08:24 | Inpatient (IN) | payer MEDICARE, MEDICAID ==
[2016-11-08] VITALS (705 sets, daily range): BP systolic 115–144; BP diastolic 63–79; PULSE 103–109; TEMP 96.4–98.8; O2SAT 71–100
[~2016-11-08] VITALS: Ht 157.5 cm; Wt 52.2 kg
[2016-11-08 08:52] LABS: ARTERIAL BLD GAS O2 SATURATION 95.7 % (92-100); ARTERIAL BLD GAS TCO2 CT 26.5; ARTERIAL BLOOD GAS BASE EXCESS 3.2 (-2-2); ARTERIAL BLOOD GAS HCO3 25.5 meq/L (22-26); ARTERIAL BLOOD GAS PO2 80.6 mmHg (80-100); ARTERIAL BLOOD GAS pH 7.52 (7.35-7.45); OXYHEMOGLOBIN 94.5 %
[2016-11-08 08:54] LABS: ALLEN TEST YES; ALLENS TEST RESULT PASS; ATS? YES
[2016-11-08 08:58] LABS: MEAN CELL VOLUME 91 fl (80.0-100.0); MEAN CORPUSCULAR HGB CONC 33 g/dl (33.0-37.0); MEAN PLATELET VOLUME 9.6 fl (7.4-10.4); PLATELET COUNT 197 K/mm3 (130-400); RED BLOOD COUNT 3.83 M/mm3 (4.10-5.30); REDCELL DISTRIBUTION WIDTH-CV 15.4 % (11.5-14.5)
[2016-11-08 09:00] LABS: ADD PATHOLOGY DIFF REVIEW NO; HEMATOCRIT 34.7 % (37.0-47.0); HEMOGLOBIN 11.6 g/dl (12.5-16.0); MEAN CORPUSCULAR HEMOGLOBIN 30 pg (27.0-31.0); WHITE BLOOD COUNT 23.7 K/mm3 (4.8-10.8)
[2016-11-08 09:13] LABS: ADJUSTED CALCIUM 9.3 mg/dL (8.4-10.2); ALBUMIN 3.7 gm/dL (3.5-5.0); BILIRUBIN,TOTAL 0.6 mg/dL (0.0-1.0); CALCIUM 9.1 mg/dL (8.4-10.2); CREATININE, serum 0.61 mg/dL (0.52-1.25); POTASSIUM 3.7 mmol/L (3.4-5.0); TOTAL PROTEIN 6.1 gm/dL (6.4-8.2)
[2016-11-08 09:26] LABS: ANISOCYTOSIS 1+; BAND 1 % (0-10); NEUTROPHILS 80 % (42.0-75.2); PLATELET ESTIMATE NORMAL (NORMAL); TOTAL CELLS COUNTED 100
[2016-11-08 09:43] LABS: PARTIAL THROMBOPLASTIN TIME 23.5 SECONDS (26.0-37.0)
[2016-11-09] VITALS (744 sets, daily range): BP systolic 105–156; BP diastolic 63–102; PULSE 93–123; TEMP 96.8–98.7; O2SAT 70–100
[2016-11-09 05:57] LABS: ADD PATHOLOGY DIFF REVIEW NO
[2016-11-09 06:23] LABS: MEAN CELL VOLUME 93 fl (80.0-100.0); MEAN CORPUSCULAR HGB CONC 32 g/dl (33.0-37.0); MEAN PLATELET VOLUME 10.1 fl (7.4-10.4); PLATELET COUNT 123 K/mm3 (130-400); REDCELL DISTRIBUTION WIDTH-CV 15.9 % (11.5-14.5); WHITE BLOOD COUNT 14.9 K/mm3 (4.8-10.8)
[2016-11-09 06:24] LABS: HEMATOCRIT 29.9 % (37.0-47.0); HEMOGLOBIN 9.7 g/dl (12.5-16.0); MEAN CORPUSCULAR HEMOGLOBIN 30 pg (27.0-31.0)
[2016-11-09 06:29] LABS: CALCIUM 8.1 mg/dL (8.4-10.2); CREATININE, serum 0.53 mg/dL (0.52-1.25); MAGNESIUM 1.9 mg/dL (1.6-2.3); POTASSIUM 3.8 mmol/L (3.4-5.0)
[2016-11-09 07:14] LABS: BAND 5 % (0-10); NEUTROPHILS 93 % (42.0-75.2); TOTAL CELLS COUNTED 100
[2016-11-09 07:35] LABS: PLATELET ESTIMATE NORMAL (NORMAL)
[2016-11-10] VITALS (7 sets, daily range): BP systolic 111–167; BP diastolic 53–88; PULSE 102–122; TEMP 98.4–98.6
[2016-11-11 03:14] VITALS: BP 167/91; PULSE 101; TEMP 98.6
[2016-11-11 07:37] VITALS: BP 133/83; BP 142/86; PULSE 114; PULSE 60; TEMP 98.1
[2016-11-11 08:59] LABS: MEAN CELL VOLUME 92 fl (80.0-100.0); MEAN CORPUSCULAR HGB CONC 33 g/dl (33.0-37.0); MEAN PLATELET VOLUME 9.6 fl (7.4-10.4); PLATELET COUNT 144 K/mm3 (130-400); RED BLOOD COUNT 3.68 M/mm3 (4.10-5.30); REDCELL DISTRIBUTION WIDTH-CV 15.6 % (11.5-14.5)
[2016-11-11 09:01] LABS: HEMATOCRIT 33.8 % (37.0-47.0); HEMOGLOBIN 11.3 g/dl (12.5-16.0); MEAN CORPUSCULAR HEMOGLOBIN 31 pg (27.0-31.0); WHITE BLOOD COUNT 21.6 K/mm3 (4.8-10.8)
[2016-11-11] MEDS ORDERED: OMNICEF 300MG300 MG PO (09:03)
[2016-11-11] MEDS ORDERED: ZITHROMAX500 M2 PO (09:22)
[2016-11-11] MEDS ORDERED: DALIRESP500 MCG PO (09:24)
[2016-11-11] MEDS ORDERED: PREDNISONE20 MG PO (09:26)
[2016-11-11 09:38] LABS: ADD PATHOLOGY DIFF REVIEW NO
[2016-11-11 09:46] LABS: BAND 5 % (0-10); NEUTROPHILS 90 % (42.0-75.2); TOTAL CELLS COUNTED 100
[2016-11-11 09:50] LABS: PLATELET ESTIMATE DECREASED (NORMAL)
[2016-11-11 11:34] VITALS: BP 179/89; PULSE 120; TEMP 98.3
[2016-11-11 17:13] VITALS: BP 159/89; PULSE 111; TEMP 98.2
[2016-11-11 19:11] VITALS: BP 166/96; PULSE 112; TEMP 98.6
[2016-11-11 22:47] VITALS: BP 164/85; PULSE 112; TEMP 98.5
[2016-11-12 04:40] VITALS: BP 150/81; PULSE 103; TEMP 98.1
[2016-11-12 08:45] VITALS: BP 135/68; PULSE 116; TEMP 98.4
[2016-11-12 08:53] LABS: MEAN CELL VOLUME 92 fl (80.0-100.0); MEAN CORPUSCULAR HGB CONC 33 g/dl (33.0-37.0); MEAN PLATELET VOLUME 9.7 fl (7.4-10.4); PLATELET COUNT 107 K/mm3 (130-400); RED BLOOD COUNT 3.05 M/mm3 (4.10-5.30); REDCELL DISTRIBUTION WIDTH-CV 15.6 % (11.5-14.5); WHITE BLOOD COUNT 12.9 K/mm3 (4.8-10.8)
[2016-11-12 09:12] LABS: HEMATOCRIT 28.1 % (37.0-47.0); HEMOGLOBIN 9.3 g/dl (12.5-16.0); MEAN CORPUSCULAR HEMOGLOBIN 30 pg (27.0-31.0)
[2016-11-12 09:13] LABS: ADD PATHOLOGY DIFF REVIEW NO
[2016-11-12 10:03] LABS: BAND 10 % (0-10); EOSINOPHIL 2 % (0-4); MYELOCYTE 2 % (0-0); NEUTROPHILS 81 % (42.0-75.2); TOTAL CELLS COUNTED 100
[2016-11-12 10:04] LABS: ANISOCYTOSIS 1+; HYPOCHROMIA 1+; PLATELET ESTIMATE NORMAL (NORMAL)
[2016-11-12 10:05] LABS: OVALOCYTES 1+
[2016-12-06] MEDS ORDERED: PROTONIX 40MG T40 MG PO (03:36)
[2016-12-28] MEDS ORDERED: ALDACTONE 25MG25 M1 PO (12:06)
[2016-12-28] MEDS ORDERED: ATARAX 25MG25 MG/TAB PO (12:06)
[2016-12-28] MEDS ORDERED: LASIX 20MG TABL20 MG PO (12:07)
[2016-12-28] MEDS ORDERED: COLACE 100100 MG/CAP PO (12:08)
[2016-12-28] MEDS ORDERED: K-DUR20 MEQ PO (12:08)
[2016-12-28] MEDS ORDERED: [UNRECOGNIZED DRUG - OTHER] PO (12:27)
== END 2016-11-12 14:00 | disposition home or self-care (01) | DRG 191 ==
LOC: COL.ER 08:24 → ICU 09:27 → MEDICAL 11-09 13:31
PROVIDERS: Emergency Medicine; Internal Medicine; Nurse Practitioner Family
DX: J44.1 Chronic obstructive pulmonary disease with (acute) exacerbation (principal); K76.6 Portal hypertension; E44.0 Moderate protein-calorie malnutrition; Z68.1 Body mass index [BMI] 19.9 or less, adult; K74.69 Other cirrhosis of liver; B19.20 Unspecified viral hepatitis C without hepatic coma; F03.90 Unspecified dementia, unspecified severity, without behavioral disturbance, psychotic disturbance, mood disturbance, and anxiety; D69.59 Other secondary thrombocytopenia; F17.210 Nicotine dependence, cigarettes, uncomplicated; F41.8 Other specified anxiety disorders
CPT/HCPCS: OP; 99231-AI; 99232-AI; 99239; G0378; J0696; J1170; J1650; J1885; J2060; J2765; J2930; J3010; J3105; J7030; J7512

== ENCOUNTER 2016-11-14 17:04 | Observation (INO) | payer MEDICARE, MEDICAID ==
[~2016-11-14] VITALS: Ht 157.5 cm; Wt 49.9 kg
[~2016-11-14 17:04] MED LIST changes: +DALIRESP500 MCG PO; +ZITHROMAX500 M2 PO
[2016-11-14 17:21] LABS: ARTERIAL BLD GAS O2 SATURATION 98.9 % (92-100); ARTERIAL BLD GAS TCO2 CT 27.6; ARTERIAL BLOOD GAS BASE EXCESS 5.1 (-2-2); ARTERIAL BLOOD GAS HCO3 26.7 meq/L (22-26); ARTERIAL BLOOD GAS PHT 7.57 C (7.35-7.45); ARTERIAL BLOOD GAS pH 7.57 (7.35-7.45); OXYHEMOGLOBIN 96.5 %
[2016-11-14 17:21] LABS: MEAN CELL VOLUME 91 fl (80.0-100.0); MEAN CORPUSCULAR HGB CONC 33 g/dl (33.0-37.0); MEAN PLATELET VOLUME 9.9 fl (7.4-10.4); PLATELET COUNT 119 K/mm3 (130-400); RED BLOOD COUNT 3.91 M/mm3 (4.10-5.30); REDCELL DISTRIBUTION WIDTH-CV 15.2 % (11.5-14.5); WHITE BLOOD COUNT 18.8 K/mm3 (4.8-10.8)
[2016-11-14 17:22] LABS: ADD PATHOLOGY DIFF REVIEW NO; HEMATOCRIT 35.4 % (37.0-47.0); HEMOGLOBIN 11.8 g/dl (12.5-16.0); MEAN CORPUSCULAR HEMOGLOBIN 30 pg (27.0-31.0)
[2016-11-14 17:22] LABS: ARTERIAL BLOOD GAS PO2 255.3 mmHg (80-100); ARTERIAL BLOOD GAS PO2T 255.3 (80-100); ATS? YES
[2016-11-14 17:26] LABS: PROTHROMBIN TIME 10.6 SECONDS (9.7-12.8)
[2016-11-14 17:30] LABS: BAND 2 % (0-10); NEUTROPHILS 95 % (42.0-75.2); PLATELET ESTIMATE NORMAL (NORMAL); TOTAL CELLS COUNTED 100
[2016-11-14] MEDS ORDERED: INCRUSE EL62.5 MCG/A IH (17:32)
[2016-11-14 17:33] LABS: ADJUSTED CALCIUM 9.5 mg/dL (8.4-10.2); ALANINE AMINOTRANSFERASE 60 U/L (9-52); ALBUMIN 3.5 gm/dL (3.5-5.0); ALKALINE PHOSPHATASE 117 U/L (50-136); ANION GAP 10 mmol/L (7-16); BILIRUBIN,TOTAL 0.9 mg/dL (0.0-1.0); BLOOD UREA NITROGEN 16 mg/dL (7-17); CALCIUM 9.1 mg/dL (8.4-10.2); CARBON DIOXIDE 30 mmol/L (22-30); CHLORIDE 99 mmol/L (98-107); CREATININE, serum 0.58 mg/dL (0.52-1.25); GLUCOSE 158 mg/dL (74-106); SODIUM 139 mmol/L (137-145); TOTAL PROTEIN 5.8 gm/dL (6.4-8.2)
[2016-11-14 17:41] LABS: B-TYPE NATRIURETIC PEPTIDE 143 pg/mL (0-125)
[2016-11-14 17:42] LABS: AMPHETAMINE URINE NEGATIVE; BARBITURATES URINE NEGATIVE; BENZODIAZEPINES URINE NEGATIVE; BUPRENORPHINE URINE NEGATIVE; METHADONE URINE NEGATIVE; OPIATES URINE NEGATIVE; OXYCODONE URINE NEGATIVE; PHENCYCLIDINE URINE NEGATIVE; PROPOXYPHENE URINE NEGATIVE; THC CANNABINOIDS URINE POSITIVE
[2016-11-14 17:42] LABS: TROPONIN-I < 0.012 ng/mL (0.000-0.034)
[2016-11-14 20:32] LABS: PH 7 (5-8); SQUAMOUS EPITHELIAL None Seen /hpf; URINE APPEARANCE Cloudy; URINE BACTERIA Rare /hpf; URINE BILIRUBIN Negative (NEGATIVE); URINE BLOOD Negative (NEGATIVE); URINE COLOR Yellow; URINE GLUCOSE Negative (NEGATIVE); URINE KETONE Trace (NEGATIVE); URINE RBC 0-2 /hpf; URINE UROBILINOGEN Negative (NEGATIVE); URINE WBC 0-2 /hpf
[2016-11-14 20:56] VITALS: BP 114/75; PULSE 77; TEMP 97.9
[2016-11-14 21:30] LABS: TROPONIN-I < 0.012 ng/mL (0.000-0.034)
[2016-11-14 23:43] VITALS: BP 101/57; PULSE 84; TEMP 97.9
[2016-11-15 03:56] VITALS: BP 109/74; PULSE 92; TEMP 98.1
[2016-11-15 06:46] LABS: MEAN CELL VOLUME 90 fl (80.0-100.0); MEAN CORPUSCULAR HGB CONC 33 g/dl (33.0-37.0); MEAN PLATELET VOLUME 10.7 fl (7.4-10.4); PLATELET COUNT 98 K/mm3 (130-400); RED BLOOD COUNT 3.26 M/mm3 (4.10-5.30); REDCELL DISTRIBUTION WIDTH-CV 14.9 % (11.5-14.5); WHITE BLOOD COUNT 12.8 K/mm3 (4.8-10.8)
[2016-11-15 06:47] LABS: ADJUSTED CALCIUM 9.2 mg/dL (8.4-10.2); ALBUMIN 2.8 gm/dL (3.5-5.0); BILIRUBIN,TOTAL 0.8 mg/dL (0.0-1.0); CALCIUM 8.2 mg/dL (8.4-10.2); CREATININE, serum 0.53 mg/dL (0.52-1.25); POTASSIUM 3.9 mmol/L (3.4-5.0)
[2016-11-15 06:57] LABS: HEMATOCRIT 29.3 % (37.0-47.0); HEMOGLOBIN 9.7 g/dl (12.5-16.0); MEAN CORPUSCULAR HEMOGLOBIN 30 pg (27.0-31.0)
[2016-11-15 06:58] LABS: ADD PATHOLOGY DIFF REVIEW NO
[2016-11-15 07:49] LABS: ANISOCYTOSIS 1+; BAND 3 % (0-10); HYPOCHROMIA 1+; NEUTROPHILS 93 % (42.0-75.2); TOTAL CELLS COUNTED 100
[2016-11-15 07:51] LABS: PLATELET ESTIMATE DECREASED (NORMAL)
[2016-11-15 08:36] VITALS: BP 104/59; PULSE 100; TEMP 99.1
[2016-11-15 12:18] VITALS: BP 122/77; PULSE 116; TEMP 99
[2016-11-15] MEDS ORDERED: PREDNISONE20 MG PO (15:54)
[2016-11-16] MEDS ORDERED: NYSTATIN OR100 MU/ML PO (21:23)
[2016-11-16] MEDS ORDERED: LEVAQUIN 750MG750 M1 PO (21:24)
[2016-12-06] MEDS ORDERED: PROTONIX 40MG T40 MG PO (03:36)
[2016-12-28] MEDS ORDERED: ALDACTONE 25MG25 M1 PO (12:06)
[2016-12-28] MEDS ORDERED: ATARAX 25MG25 MG/TAB PO (12:06)
[2016-12-28] MEDS ORDERED: LASIX 20MG TABL20 MG PO (12:07)
[2016-12-28] MEDS ORDERED: K-DUR20 MEQ PO (12:08)
[2016-12-28] MEDS ORDERED: COLACE 100100 MG/CAP PO (12:08)
[2016-12-28] MEDS ORDERED: [UNRECOGNIZED DRUG - OTHER] PO (12:27)
== END 2016-11-15 16:38 | disposition left against medical advice (07) ==
LOC: COL.ER 17:04 → MEDICAL 19:16
PROVIDERS: Family Medicine; Nurse Practitioner Family
DX: J44.1 Chronic obstructive pulmonary disease with (acute) exacerbation (principal); R18.8 Other ascites; K76.6 Portal hypertension; K74.60 Unspecified cirrhosis of liver; F17.210 Nicotine dependence, cigarettes, uncomplicated; B19.20 Unspecified viral hepatitis C without hepatic coma; D69.6 Thrombocytopenia, unspecified; F41.8 Other specified anxiety disorders; Z86.73 Personal history of transient ischemic attack (TIA), and cerebral infarction without residual deficits; K57.90 Diverticulosis of intestine, part unspecified, without perforation or abscess without bleeding; F03.90 Unspecified dementia, unspecified severity, without behavioral disturbance, psychotic disturbance, mood disturbance, and anxiety; D64.9 Anemia, unspecified; F12.90 Cannabis use, unspecified, uncomplicated; F32.9 Major depressive disorder, single episode, unspecified; Z95.828 Presence of other vascular implants and grafts
CPT/HCPCS: 99223-AI; A4315; C9113; G0378; J1956; J2270; J2543; J2930; J3370; J7030; J7050; Q9967

== ENCOUNTER 2016-11-16 21:07 | Emergency (ER) | payer MEDICARE, MEDICAID ==
[~2016-11-16] VITALS: Ht 152.4 cm; Wt 56.8 kg
[2016-11-16 21:12] VITALS: TEMP 97
[2016-11-16] MEDS ORDERED: NYSTATIN OR100 MU/ML PO (21:23)
[2016-11-16] MEDS ORDERED: LEVAQUIN 750MG750 M1 PO (21:24)
[2016-11-16 21:25] LABS: ARTERIAL BLD GAS O2 SATURATION 97.7 % (92-100); ARTERIAL BLD GAS TCO2 CT 28.9; ARTERIAL BLOOD GAS BASE EXCESS 3.9 (-2-2); ARTERIAL BLOOD GAS HCO3 27.7 meq/L (22-26); ARTERIAL BLOOD GAS PHT 7.48 C (7.35-7.45); ARTERIAL BLOOD GAS pH 7.48 (7.35-7.45)
[2016-11-16 21:26] LABS: ALLEN TEST YES; ALLENS TEST RESULT PASS; ARTERIAL BLOOD GAS PO2 141.5 mmHg (80-100); ARTERIAL BLOOD GAS PO2T 141.5 (80-100); ATS? YES
[2016-11-16 22:13] VITALS: BP 132/77; PULSE 92
[2016-12-06] MEDS ORDERED: PROTONIX 40MG T40 MG PO (03:36)
[2016-12-28] MEDS ORDERED: ALDACTONE 25MG25 M1 PO (12:06)
[2016-12-28] MEDS ORDERED: ATARAX 25MG25 MG/TAB PO (12:06)
[2016-12-28] MEDS ORDERED: LASIX 20MG TABL20 MG PO (12:07)
[2016-12-28] MEDS ORDERED: K-DUR20 MEQ PO (12:08)
[2016-12-28] MEDS ORDERED: COLACE 100100 MG/CAP PO (12:08)
[2016-12-28] MEDS ORDERED: [UNRECOGNIZED DRUG - OTHER] PO (12:27)
== END 2016-11-16 22:13 | disposition home or self-care (01) ==
LOC: COL.ER 21:07
PROVIDERS: Emergency Medicine
DX: J44.9 Chronic obstructive pulmonary disease, unspecified (principal); R19.7 Diarrhea, unspecified; F17.210 Nicotine dependence, cigarettes, uncomplicated; K21.9 Gastro-esophageal reflux disease without esophagitis; F32.9 Major depressive disorder, single episode, unspecified; F41.9 Anxiety disorder, unspecified; Z90.49 Acquired absence of other specified parts of digestive tract; Z90.710 Acquired absence of both cervix and uterus; Z95.828 Presence of other vascular implants and grafts; Z98.890 Other specified postprocedural states

== ENCOUNTER 2016-11-17 00:41 | Inpatient (IN) | payer MEDICARE, MEDICAID ==
[2016-11-17] VITALS (8 sets, daily range): BP systolic 85–128; BP diastolic 61–76; PULSE 95–128; TEMP 97.5–98.7; O2SAT 99–100
[~2016-11-17] VITALS: Ht 157.5 cm; Wt 51.3 kg
[~2016-11-17 00:41] MED LIST changes: +NYSTATIN OR100 MU/ML PO
[2016-11-17 01:23] LABS: BASO % 0.1 % (0.0-2.0); EOS % 0.1 % (0-4.0); GRAN # 12.1 (1.4-6.5); GRAN % 82.1 % (42.2-75.2); LYMPH # 1.2 (1.2-3.4); LYMPH % 8.2 % (20.0-51.0); MEAN CELL VOLUME 89 fl (80.0-100.0); MEAN CORPUSCULAR HGB CONC 33 g/dl (33.0-37.0); MEAN PLATELET VOLUME 9.8 fl (7.4-10.4); MONO # 1.3 (0.1-0.6); MONO % 8.7 % (1.7-9.3); PLATELET COUNT 90 K/mm3 (130-400); RED BLOOD COUNT 3.19 M/mm3 (4.10-5.30); REDCELL DISTRIBUTION WIDTH-CV 15.5 % (11.5-14.5); WHITE BLOOD COUNT 14.8 K/mm3 (4.8-10.8)
[2016-11-17 01:24] LABS: HEMATOCRIT 28.5 % (37.0-47.0); HEMOGLOBIN 9.4 g/dl (12.5-16.0); MEAN CORPUSCULAR HEMOGLOBIN 29 pg (27.0-31.0)
[2016-11-17 01:28] LABS: PROTHROMBIN TIME 11.3 SECONDS (9.7-12.8)
[2016-11-17 01:31] LABS: PARTIAL THROMBOPLASTIN TIME 24.3 SECONDS (26.0-37.0)
[2016-11-17 01:36] LABS: ADJUSTED CALCIUM 9.4 mg/dL (8.4-10.2); ALBUMIN 3.2 gm/dL (3.5-5.0); BILIRUBIN,TOTAL 0.5 mg/dL (0.0-1.0); CALCIUM 8.8 mg/dL (8.4-10.2); CREATININE, serum 0.56 mg/dL (0.52-1.25); POTASSIUM 3.2 mmol/L (3.4-5.0); TOTAL PROTEIN 5.2 gm/dL (6.4-8.2)
[2016-11-17 01:38] LABS: ARTERIAL BLD GAS TCO2 CT 28.9; ARTERIAL BLOOD GAS BASE EXCESS 4.6 (-2-2); ARTERIAL BLOOD GAS HCO3 27.8 meq/L (22-26); ARTERIAL BLOOD GAS PHT 7.51 C (7.35-7.45); ARTERIAL BLOOD GAS PO2 89.7 mmHg (80-100); ARTERIAL BLOOD GAS PO2T 89.7 (80-100); ARTERIAL BLOOD GAS pH 7.51 (7.35-7.45)
[2016-11-17 01:39] LABS: ALLEN TEST YES; ALLENS TEST RESULT PASS; ATS? YES
[2016-11-17 01:48] LABS: TROPONIN-I 0.015 ng/mL (0.000-0.034)
[2016-11-17 06:18] LABS: MEAN CELL VOLUME 91 fl (80.0-100.0); MEAN CORPUSCULAR HGB CONC 33 g/dl (33.0-37.0); MEAN PLATELET VOLUME 9.5 fl (7.4-10.4); PLATELET COUNT 73 K/mm3 (130-400); RED BLOOD COUNT 2.97 M/mm3 (4.10-5.30); REDCELL DISTRIBUTION WIDTH-CV 15.5 % (11.5-14.5); WHITE BLOOD COUNT 9.3 K/mm3 (4.8-10.8)
[2016-11-17 06:21] LABS: HEMATOCRIT 27.1 % (37.0-47.0); HEMOGLOBIN 8.9 g/dl (12.5-16.0); MEAN CORPUSCULAR HEMOGLOBIN 30 pg (27.0-31.0)
[2016-11-17 06:22] LABS: ADD PATHOLOGY DIFF REVIEW NO
[2016-11-17 06:26] LABS: BILIRUBIN,TOTAL 0.6 mg/dL (0.0-1.0); CALCIUM 8.2 mg/dL (8.4-10.2); CREATININE, serum 0.53 mg/dL (0.52-1.25); POTASSIUM 3.3 mmol/L (3.4-5.0)
[2016-11-17 06:57] LABS: BAND 7 % (0-10); NEUTROPHILS 90 % (42.0-75.2); PLATELET ESTIMATE DECREASED (NORMAL); TOTAL CELLS COUNTED 100
[2016-11-17 06:58] LABS: HYPOCHROMIA 2+
[2016-11-18 01:12] VITALS: BP 139/49; PULSE 107; TEMP 98.2
[2016-11-18 04:25] VITALS: BP 152/77; PULSE 117; TEMP 97.8
[2016-11-18 06:53] LABS: CALCIUM 8.3 mg/dL (8.4-10.2); CREATININE, serum 0.5 mg/dL (0.52-1.25); POTASSIUM 3.3 mmol/L (3.4-5.0)
[2016-11-18 07:48] VITALS: BP 156/76; PULSE 117; TEMP 98.3
[2016-11-18] MEDS ORDERED: ANUSOL-HC SUPPO25 MG RC (10:07)
[2016-11-18] MEDS ORDERED: PREDNISONE20 MG PO (10:09)
[2016-11-18 15:45] VITALS: BP 156/76; PULSE 117; TEMP 98.3
[2016-12-06] MEDS ORDERED: PROTONIX 40MG T40 MG PO (03:36)
[2016-12-28] MEDS ORDERED: ATARAX 25MG25 MG/TAB PO (12:06)
[2016-12-28] MEDS ORDERED: ALDACTONE 25MG25 M1 PO (12:06)
[2016-12-28] MEDS ORDERED: LASIX 20MG TABL20 MG PO (12:07)
[2016-12-28] MEDS ORDERED: COLACE 100100 MG/CAP PO (12:08)
[2016-12-28] MEDS ORDERED: K-DUR20 MEQ PO (12:08)
[2016-12-28] MEDS ORDERED: [UNRECOGNIZED DRUG - OTHER] PO (12:27)
== END 2016-11-18 16:24 | DRG 191 ==
LOC: COL.ER 00:41 → ICU 02:38 → MEDICAL 02:38
PROVIDERS: Emergency Medicine; Family Medicine; Internal Medicine
DX: J44.1 Chronic obstructive pulmonary disease with (acute) exacerbation (principal); K76.6 Portal hypertension; E44.0 Moderate protein-calorie malnutrition; Z68.1 Body mass index [BMI] 19.9 or less, adult; R18.8 Other ascites; K62.5 Hemorrhage of anus and rectum; K74.60 Unspecified cirrhosis of liver; B18.2 Chronic viral hepatitis C; E87.6 Hypokalemia; F17.210 Nicotine dependence, cigarettes, uncomplicated; D64.9 Anemia, unspecified; D69.6 Thrombocytopenia, unspecified; K64.9 Unspecified hemorrhoids
CPT/HCPCS: 99222-AI; 99223-AI; 99239; A4315; C9113; G0378; J1956; J2270; J2543; J2920; J2930; J3370; J7030; J7050; Q9967

== ENCOUNTER → 2016-11-23 | Outpatient (CLI) | payer MEDICARE, MEDICAID ==
[~2016-11-23] MED LIST changes: +ALDACTONE 25MG25 M1 PO; +ANUSOL-HC SUPPO25 MG RC; +BREO IH; +COLACE 100100 MG/CAP PO; +K-DUR20 MEQ PO; +LASIX 20MG TABL20 MG PO; +[UNRECOGNIZED DRUG - OTHER] PO
== END ==
LOC: COL.RAD 10:41
DX: R18.8 Other ascites (principal)

== ENCOUNTER → 2016-12-02 | Outpatient (CLI) | payer MEDICARE, MEDICAID | LOC: COL.RAD 10:22 | DX: K74.60 Unspecified cirrhosis of liver (principal); B19.20 Unspecified viral hepatitis C without hepatic coma; R74.0 Nonspecific elevation of levels of transaminase and lactic acid dehydrogenase [LDH] ==

== ENCOUNTER 2016-12-08 13:03 | Emergency (ER) | payer MEDICARE, MEDICAID ==
[~2016-12-08] VITALS: Ht 157.5 cm; Wt 45.9 kg
[~2016-12-08 13:03] MED LIST changes: -ALDACTONE 25MG25 M1 PO; -BREO IH; -COLACE 100100 MG/CAP PO; -K-DUR20 MEQ PO; -LASIX 20MG TABL20 MG PO; -[UNRECOGNIZED DRUG - OTHER] PO
[2016-12-08 13:04] VITALS: TEMP 98.6
[2016-12-08 13:18] LABS: BASO % 0.1 % (0.0-2.0); GRAN # 8.5 (1.4-6.5); GRAN % 89.3 % (42.2-75.2); LYMPH # 0.4 (1.2-3.4); MEAN CELL VOLUME 87 fl (80.0-100.0); MEAN CORPUSCULAR HGB CONC 31 g/dl (33.0-37.0); MEAN PLATELET VOLUME 10.4 fl (7.4-10.4); MONO # 0.5 (0.1-0.6); MONO % 5.6 % (1.7-9.3); PLATELET COUNT 188 K/mm3 (130-400); RED BLOOD COUNT 3.25 M/mm3 (4.10-5.30); REDCELL DISTRIBUTION WIDTH-CV 15.9 % (11.5-14.5); WHITE BLOOD COUNT 9.5 K/mm3 (4.8-10.8)
[2016-12-08 13:20] LABS: HEMATOCRIT 28.4 % (37.0-47.0); HEMOGLOBIN 8.8 g/dl (12.5-16.0); MEAN CORPUSCULAR HEMOGLOBIN 27 pg (27.0-31.0)
[2016-12-08 13:38] LABS: ADJUSTED CALCIUM 10.1 mg/dL (8.4-10.2); ALBUMIN 3.4 gm/dL (3.5-5.0); BILIRUBIN,TOTAL 0.5 mg/dL (0.0-1.0); CALCIUM 9.6 mg/dL (8.4-10.2); CREATININE, serum 0.76 mg/dL (0.52-1.25); POTASSIUM 3.9 mmol/L (3.4-5.0); TOTAL PROTEIN 5.9 gm/dL (6.4-8.2)
[2016-12-08 13:49] LABS: TROPONIN-I 0.017 ng/mL (0.000-0.034)
[2016-12-08 14:39] LABS: ARTERIAL BLD GAS O2 SATURATION 96.3 % (92-100); ARTERIAL BLOOD GAS BASE EXCESS 0.3 (-2-2); ARTERIAL BLOOD GAS PO2 97.7 mmHg (80-100); ARTERIAL BLOOD GAS pH 7.46 (7.35-7.45); OXYHEMOGLOBIN 95.1 %
[2016-12-08 14:40] LABS: ALLEN TEST YES; ALLENS TEST RESULT PASS; ATS? YES
[2016-12-08 18:29] VITALS: BP 108/64; PULSE 115
[2016-12-09] MEDS ORDERED: ATARAX 25MG25 MG/TAB PO (12:57)
[2016-12-09] MEDS ORDERED: REMERON30 MG PO (12:58)
[2016-12-09] MEDS ORDERED: DALIRESP500 MCG PO (12:58)
[2016-12-09] MEDS ORDERED: ZOFRAN 4MG T4 MG/TAB PO (12:59)
[2016-12-09] MEDS ORDERED: LEVAQUIN 750MG750 M1 PO (12:59)
[2016-12-09] MEDS ORDERED: PREDNISONE20 MG PO (13:00)
[2016-12-09] MEDS ORDERED: RT SPIRIVA18 MCG IH (13:01)
[2016-12-09] MEDS ORDERED: RT ADVAIR 528 DISKUS IH (13:01)
[2016-12-09] MEDS ORDERED: PROTONIX 40MG T40 MG PO (13:02)
[2016-12-09] MEDS ORDERED: NYSTATIN OR100 MU/ML PO (13:03)
[2016-12-28] MEDS ORDERED: ATARAX 25MG25 MG/TAB PO (12:06)
[2016-12-28] MEDS ORDERED: ALDACTONE 25MG25 M1 PO (12:06)
[2016-12-28] MEDS ORDERED: LASIX 20MG TABL20 MG PO (12:07)
[2016-12-28] MEDS ORDERED: COLACE 100100 MG/CAP PO (12:08)
[2016-12-28] MEDS ORDERED: K-DUR20 MEQ PO (12:08)
[2016-12-28] MEDS ORDERED: [UNRECOGNIZED DRUG - OTHER] PO (12:27)
== END 2016-12-08 18:45 | disposition home or self-care (01) ==
LOC: COL.ER 13:03
PROVIDERS: Emergency Medicine
DX: J44.1 Chronic obstructive pulmonary disease with (acute) exacerbation (principal); F41.9 Anxiety disorder, unspecified; R00.0 Tachycardia, unspecified; K74.60 Unspecified cirrhosis of liver; Z99.81 Dependence on supplemental oxygen; Z87.891 Personal history of nicotine dependence; F03.90 Unspecified dementia, unspecified severity, without behavioral disturbance, psychotic disturbance, mood disturbance, and anxiety; D47.3 Essential (hemorrhagic) thrombocythemia
CPT/HCPCS: J2060; J2930; J7030; Q9967

== ENCOUNTER 2016-12-09 11:03 | Inpatient (IN) | payer MEDICARE, MEDICAID ==
[~2016-12-09] VITALS: Ht 157.5 cm; Wt 55.1 kg
[2016-12-09] VITALS (539 sets, daily range): BP systolic 104–119; BP diastolic 63–77; PULSE 103–117; TEMP 98–98.1; O2SAT 86–100
[2016-12-09 11:53] LABS: MEAN CELL VOLUME 88 fl (80.0-100.0); MEAN CORPUSCULAR HGB CONC 30 g/dl (33.0-37.0); PLATELET COUNT 185 K/mm3 (130-400); RED BLOOD COUNT 3.15 M/mm3 (4.10-5.30); WHITE BLOOD COUNT 14.6 K/mm3 (4.8-10.8)
[2016-12-09 11:58] LABS: ALBUMIN 3.2 gm/dL (3.5-5.0); BILIRUBIN,TOTAL 0.5 mg/dL (0.0-1.0); CALCIUM 9.4 mg/dL (8.4-10.2); CREATININE, serum 0.65 mg/dL (0.52-1.25); PHOSPHOROUS 3.6 mg/dL (2.5-4.5); POTASSIUM 3.6 mmol/L (3.4-5.0); TOTAL PROTEIN 5.7 gm/dL (6.4-8.2)
[2016-12-09 12:02] LABS: ADD PATHOLOGY DIFF REVIEW NO; HEMATOCRIT 27.7 % (37.0-47.0); HEMOGLOBIN 8.4 g/dl (12.5-16.0); MEAN CORPUSCULAR HEMOGLOBIN 27 pg (27.0-31.0)
[2016-12-09 12:09] LABS: TROPONIN-I 0.013 ng/mL (0.000-0.034)
[2016-12-09 12:12] LABS: ARTERIAL BLD GAS O2 SATURATION 96.4 % (92-100); ARTERIAL BLD GAS TCO2 CT 25.5; ARTERIAL BLOOD GAS BASE EXCESS 0.8 (-2-2); ARTERIAL BLOOD GAS HCO3 24.4 meq/L (22-26); ARTERIAL BLOOD GAS PHT 7.46 C (7.35-7.45); ARTERIAL BLOOD GAS PO2 94.9 mmHg (80-100); ARTERIAL BLOOD GAS PO2T 94.9 (80-100); ARTERIAL BLOOD GAS pH 7.46 (7.35-7.45); OXYHEMOGLOBIN 95.3 %
[2016-12-09 12:13] LABS: ATS? YES
[2016-12-09 12:42] LABS: BAND 3 % (0-10); NEUTROPHILS 80 % (42.0-75.2); TOTAL CELLS COUNTED 100
[2016-12-09 12:43] LABS: ANISOCYTOSIS 1+
[2016-12-09 12:44] LABS: PLATELET ESTIMATE NORMAL (NORMAL); POLYCHROMASIA 1+
[2016-12-09] MEDS ORDERED: ATARAX 25MG25 MG/TAB PO (12:57)
[2016-12-09] MEDS ORDERED: DALIRESP500 MCG PO (12:58)
[2016-12-09] MEDS ORDERED: REMERON30 MG PO (12:58)
[2016-12-09] MEDS ORDERED: ZOFRAN 4MG T4 MG/TAB PO (12:59)
[2016-12-09] MEDS ORDERED: LEVAQUIN 750MG750 M1 PO (12:59)
[2016-12-09] MEDS ORDERED: PREDNISONE20 MG PO (13:00)
[2016-12-09] MEDS ORDERED: RT ADVAIR 528 DISKUS IH (13:01)
[2016-12-09] MEDS ORDERED: RT SPIRIVA18 MCG IH (13:01)
[2016-12-09] MEDS ORDERED: PROTONIX 40MG T40 MG PO (13:02)
[2016-12-09] MEDS ORDERED: NYSTATIN OR100 MU/ML PO (13:03)
[2016-12-10] VITALS (536 sets, daily range): BP systolic 100–173; BP diastolic 52–84; PULSE 91–121; TEMP 97.7–98.6; O2SAT 38–100
[2016-12-10 05:45] LABS: MEAN CELL VOLUME 86 fl (80.0-100.0); MEAN CORPUSCULAR HGB CONC 31 g/dl (33.0-37.0); MEAN PLATELET VOLUME 9.6 fl (7.4-10.4); PLATELET COUNT 154 K/mm3 (130-400); RED BLOOD COUNT 3.14 M/mm3 (4.10-5.30); REDCELL DISTRIBUTION WIDTH-CV 15.9 % (11.5-14.5); WHITE BLOOD COUNT 8.3 K/mm3 (4.8-10.8)
[2016-12-10 05:46] LABS: HEMATOCRIT 26.9 % (37.0-47.0); HEMOGLOBIN 8.3 g/dl (12.5-16.0); MEAN CORPUSCULAR HEMOGLOBIN 26 pg (27.0-31.0)
[2016-12-11 03:02] VITALS: BP 132/75; PULSE 102; TEMP 98.7
[2016-12-11 07:05] VITALS: BP 124/72; PULSE 102; TEMP 97.3
[2016-12-11 12:10] VITALS: BP 131/83; PULSE 114; TEMP 97.8
[2016-12-11 15:38] VITALS: BP 142/84; PULSE 138; TEMP 99.1
[2016-12-11 20:13] VITALS: BP 111/62; PULSE 114; TEMP 98
[2016-12-11 23:38] VITALS: BP 135/75; PULSE 113; TEMP 98.1
[2016-12-12 03:48] VITALS: BP 129/79; PULSE 115; TEMP 97.8
[2016-12-12 08:24] VITALS: BP 136/82; PULSE 114; TEMP 98.1
[2016-12-12] MEDS ORDERED: BREO IH (10:00)
[2016-12-12] MEDS ORDERED: IPRATROPIUM BROM3 M1 IH (10:00)
[2016-12-12] MEDS ORDERED: INCRUSE EL62.5 MCG/A IH (10:02)
[2016-12-12] MEDS ORDERED: PREDNISONE20 MG PO (10:05)
[2016-12-12] MEDS ORDERED: MUCINEX DM 30 M1 TE1 PO (10:05)
[2016-12-12 11:58] VITALS: BP 136/82; PULSE 114; TEMP 98.1
[2016-12-28] MEDS ORDERED: ALDACTONE 25MG25 M1 PO (12:06)
[2016-12-28] MEDS ORDERED: ATARAX 25MG25 MG/TAB PO (12:06)
[2016-12-28] MEDS ORDERED: LASIX 20MG TABL20 MG PO (12:07)
[2016-12-28] MEDS ORDERED: COLACE 100100 MG/CAP PO (12:08)
[2016-12-28] MEDS ORDERED: K-DUR20 MEQ PO (12:08)
[2016-12-28] MEDS ORDERED: [UNRECOGNIZED DRUG - OTHER] PO (12:27)
== END 2016-12-12 13:15 | DRG 191 ==
LOC: COL.ER 11:03 → ICU 12:49 → MEDICAL 12-10 11:49
PROVIDERS: Emergency Medicine; Internal Medicine Cardiovascular Disease
DX: J44.1 Chronic obstructive pulmonary disease with (acute) exacerbation (principal); E44.0 Moderate protein-calorie malnutrition; Z68.1 Body mass index [BMI] 19.9 or less, adult; I10 Essential (primary) hypertension; E11.9 Type 2 diabetes mellitus without complications; Z87.891 Personal history of nicotine dependence; D64.9 Anemia, unspecified
CPT/HCPCS: 99222-AI; 99232-AI; 99239; J2060; J2270; J2920; J2930; J3475; J7030; Q9967

== ENCOUNTER → 2016-12-13 | Outpatient (REF) ==
[~2016-12-13] MED LIST changes: +ALDACTONE 25MG25 M1 PO; +BREO IH; +COLACE 100100 MG/CAP PO; +K-DUR20 MEQ PO; +LASIX 20MG TABL20 MG PO; +[UNRECOGNIZED DRUG - OTHER] PO
[2016-12-13 14:20] LABS: MEAN CELL VOLUME 84 fl (80.0-100.0); MEAN CORPUSCULAR HGB CONC 32 g/dl (33.0-37.0); PLATELET COUNT 152 K/mm3 (130-400); RED BLOOD COUNT 3.66 M/mm3 (4.10-5.30); REDCELL DISTRIBUTION WIDTH-CV 16.9 % (11.5-14.5); WHITE BLOOD COUNT 15.2 K/mm3 (4.8-10.8)
[2016-12-13 14:24] LABS: ADD PATHOLOGY DIFF REVIEW NO; HEMATOCRIT 30.6 % (37.0-47.0); HEMOGLOBIN 9.7 g/dl (12.5-16.0); MEAN CORPUSCULAR HEMOGLOBIN 27 pg (27.0-31.0)
[2016-12-13 15:47] LABS: ANISOCYTOSIS 2+; BAND 6 % (0-10); EOSINOPHIL 1 % (0-4); METAMYELOCYTE 1 % (0-0); MYELOCYTE 4 % (0-0); NEUTROPHILS 73 % (42.0-75.2); PLATELET ESTIMATE NORMAL (NORMAL); TOTAL CELLS COUNTED 100
== END ==
LOC: ZLAB.WCH 14:15 → ZLAB.STJ 14:15
PROVIDERS: Internal Medicine
DX: Z01.89 Encounter for other specified special examinations (principal)

== ENCOUNTER → 2016-12-13 | Outpatient (CLI) | payer MEDICARE, MEDICAID | LOC: COL.RAD 12:59 | DX: R18.8 Other ascites (principal) ==

== ENCOUNTER → 2016-12-15 | Outpatient (REF) ==
[2016-12-15 09:53] LABS: ADJUSTED CALCIUM 9.4 mg/dL (8.4-10.2); ALBUMIN 2.5 gm/dL (3.5-5.0); BILIRUBIN,TOTAL 0.3 mg/dL (0.0-1.0); CALCIUM 8.2 mg/dL (8.4-10.2); CREATININE, serum 0.6 mg/dL (0.52-1.25); POTASSIUM 3.7 mmol/L (3.4-5.0); TOTAL PROTEIN 4.6 gm/dL (6.4-8.2)
== END ==
LOC: ZLAB.STJ 09:19
PROVIDERS: Internal Medicine
DX: Z01.89 Encounter for other specified special examinations (principal)

== ENCOUNTER → 2016-12-28 | Outpatient (CLI) | payer MEDICARE, MEDICAID ==
[~2016-12-28] VITALS: Ht 157.5 cm; Wt 47.3 kg
[2016-12-28 12:33] VITALS: BP 103/75; PULSE 94
== END ==
LOC: COL.RAD 11:32
DX: Z53.8 Procedure and treatment not carried out for other reasons (principal); J44.1 Chronic obstructive pulmonary disease with (acute) exacerbation; I50.9 Heart failure, unspecified; D64.9 Anemia, unspecified; Z90.49 Acquired absence of other specified parts of digestive tract; Z90.710 Acquired absence of both cervix and uterus; Z87.891 Personal history of nicotine dependence